=== PATIENT | male | born 1945 | race Caucasian/White ===

== ENCOUNTER → 2024-05-20 08:27 | Outpatient (REF) | payer BC, SELFPAY ==
[2024-05-20 10:01] LABS: % Basophils 0.9 % (0-2); % Eosinophils 3.6 % (0-6); % Immature Granulocytes 0.4 % (0-0.5); % Lymphocytes 25.7 % (20.5-51.1); % Monocytes 8.6 % (1.7-9.3); % Neutrophils 60.8 % (42.2-75.2); Absolute Basophils 0.1 10^3/uL (0-0.2); Absolute Eosinophils 0.4 10^3/uL (0-0.7); Absolute Lymphocytes 2.5 10^3/uL (1.2-3.4); Absolute Monocytes 0.8 10^3/uL (0.1-0.6); Absolute Neutrophils 5.9 10^3/uL (1.4-6.5); Hematocrit 44.2 % (39.0-52.0); Hemoglobin 14.2 g/dL (13.0-18.0); Mean Corp Hgb Conc. 32.1 g/dL (33.0-37.0); Mean Corpuscular Hgb 30.1 pg (27.0-31.0); Mean Corpuscular Volume 93.6 fL (80.0-94.0); Mean Platelet Volume 10.9 fL (7.4-10.4); Nucleated Red Blood Cells % 0 % (-); Platelet Count 258 10^3/uL (130-400); Red Blood Cell Count 4.72 10^6/uL (4.70-6.10); Red Cell Dist. Width 15.1 % (11.5-14.5); White Blood Cell Count 9.8 10^3/uL (4.8-10.8)
[2024-05-20 10:26] LABS: Urine Albumin Negative (Neg - Trace); Urine Bilirubin Negative (Negative); Urine Character Clear (Clear); Urine Color Yellow; Urine Glucose Negative (Negative); Urine Ketone Negative (Negative); Urine Leukocyte Negative (Negative); Urine Nitrite Negative (Negative); Urine Occult Blood Trace (Negative); Urine Specific Gravity 1.015 (<1.030); Urine Urobilinogen 1+ (Neg - 1+)
[2024-05-20 11:11] LABS: Urine Squamous Cell 0-2 /LPF (Few)
[2024-05-20 12:23] LABS: ALT (SGPT) 14 U/L (0-50); AST (SGOT) 28 U/L (17-59); Alkaline Phosphatase 96 U/L (38-126); Blood Urea Nitrogen 13 mg/dl (9-20); Calcium 9.4 mg/dl (8.4-10.2); Carbon Dioxide 31 mmol/L (22-30); Chloride 102 mmol/L (98-107); Glucose 96 mg/dl (70-99); HDL Cholesterol 57 mg/dl; LDL Cholesterol, Calculated 56 mg/dl; Potassium 5.1 mmol/L (3.5-5.1); Sodium 146 mmol/L (135-145); Total Bilirubin 0.9 mg/dl (0.2-1.3); Total Cholesterol 125 mg/dl (50-199); Total Protein 6.6 g/dl (6.3-8.2); Triglyceride 64 mg/dl (10-149); Very Low Density Lipoprotein 12 mg/dl (0-30); eGFR > 60.00
== END ==
LOC: REG 08:27
PROVIDERS: ATTENDING PHYSICIAN Family Medicine
DX: Z00.00 Encounter for general adult medical examination without abnormal findings (principal); E78.2 Mixed hyperlipidemia; I10 Essential (primary) hypertension; Z12.5 Encounter for screening for malignant neoplasm of prostate
CPT/HCPCS: 36415; 80053; 80061; 81003; 81015; 84443; 85025; G0103

== ENCOUNTER → 2024-07-23 09:21 | Outpatient (REF) | payer BC, SELFPAY ==
[2024-07-23 16:56] LABS: Urine Albumin Negative (Neg - Trace); Urine Bilirubin Negative (Negative); Urine Character Clear (Clear); Urine Color Yellow; Urine Glucose Negative (Negative); Urine Ketone Negative (Negative); Urine Leukocyte Negative (Negative); Urine Nitrite Negative (Negative); Urine Occult Blood Negative (Negative); Urine Urobilinogen 1+ (Neg - 1+)
== END ==
LOC: CLAB 09:21
PROVIDERS: ATTENDING PHYSICIAN Physician Assistant Medical
DX: N39.0 Urinary tract infection, site not specified (principal)
CPT/HCPCS: 81003

== ENCOUNTER → 2024-11-03 14:42 | Outpatient (REF) | payer BC, SELFPAY | LOC: RAD 14:42 | PROVIDERS: ATTENDING PHYSICIAN Family Medicine | DX: R05.1 Acute cough (principal) | CPT/HCPCS: 71046 ==

== ENCOUNTER → 2025-06-18 08:52 | Outpatient (REF) | payer MEDICARE, SELFPAY | LOC: REG 08:52 | PROVIDERS: ATTENDING PHYSICIAN Student in an Organized Health Care Education/Training Program; FAMILY PHYSICIAN Family Medicine | DX: M53.3 Sacrococcygeal disorders, not elsewhere classified (principal) | CPT/HCPCS: 72220 ==

== ENCOUNTER 2025-07-01 15:05 | Emergency (ER) | payer MEDICARE, SELFPAY ==
[2025-07-01 15:19] VITALS: BP 125/53
[2025-07-01 15:55] LABS: Hematocrit 42.5 % (39.0-52.0); Hemoglobin 13.3 g/dL (13.0-18.0); Mean Corp Hgb Conc. 31.3 g/dL (33.0-37.0); Mean Corpuscular Volume 96.2 fL (80.0-94.0); Nucleated Red Blood Cells % 0 % (-); Platelet Count 273 10^3/uL (130-400); Red Cell Dist. Width 15.7 % (11.5-14.5)
[2025-07-01 16:19] LABS: ALT (SGPT) 17 U/L (0-50); AST (SGOT) 27 U/L (17-59); Albumin 4.0 g/dl (3.5-5.0); Alkaline Phosphatase 73 U/L (38-126); Blood Urea Nitrogen 20 mg/dl (9-20); Calcium 9.7 mg/dl (8.4-10.2); Carbon Dioxide 31 mmol/L (22-30); Chloride 106 mmol/L (98-107); Glucose 94 mg/dl (70-99); Potassium 5.2 mmol/L (3.5-5.1); Sodium 142 mmol/L (135-145); Total Protein 6.8 g/dl (6.3-8.2); eGFR > 60.00
[2025-07-01 16:23] LABS: Troponin I < 0.012 ng/ml
[2025-07-01 17:03] VITALS: BP 125/53; BP 136/72; BP 141/58; PULSE 62; PULSE 68; PULSE 80; BMI 21.2
[2025-07-01 17:39] LABS: Magnesium 2.2 mg/dl (1.6-2.3)
[2025-07-01 17:51] VITALS: BP 131/78
--- NOTE | 2025-07-01 18:30 | ED.GENMED ---
History of Present Illness
General
Chief Complaint: Back Pain
Source: patient and spouse
Exam Limitations: none
Time Seen by Provider: 07/01/25 16:13
Nursing documentation reviewed up to this point in time: agreed with
History of Present Illness
History of Present Illness:
Patient presents to ED secondary to ongoing dizziness, which has caused patient to fall on multiple occasions over the past 10 days. In addition, patient has been experiencing worsening shortness of breath with exertion, especially going up the
steps recently. At rest, patient is without any complaints. Denies headache. Denies blurred vision. Denies loss of sensation or weakness. Denies difficulty with speech. Denies recent change in diet. Denies recent illness. Denies chest
palpitations.
Past History
Past History
ED Past Medical History: CAD, HTN and Hypercholesterolemia
ED Past Surgical History: Other (Hernia repair)
Social History
Tobacco: Smoker
Alcohol: Occasional
Drug: None
Personal: Other
Living: other
Employment: Retired
Family History
Family History: Other
Review of Systems
Review of Systems
Allergies reviewed?: Yes
All Other Systems: ROS reviewed and negative except as documented in HPI and ROS
Constitutional: Reports no symptoms
Respiratory: Reports trouble breathing; Denies cough
Cardiac: Reports no symptoms; Denies palpitations or syncope
ABD/GI: Reports no symptoms
Musculoskeletal: Reports other (buttock pain)
Skin: Reports no symptoms
Neurological: Reports dizzy; Denies headache or weakness
Phy Exam
Physical Exam
Physical Exam:
Physical Exam
General: no apparent distress, not acutely ill. afebrile
Head: nc/at. eomi
Neck: supple. no meningeal signs.
Heart: s1/s2 regular rate and rhythm
Lungs: no acute respiratory distress. clear bilaterally
Abdomen: normal bowel sounds. not tender.
Neuro: alert and oriented x 3. no focal sensory/motor deficit. normal speech. normal gait
Skin: no rash
Psychiatric: well kept. interactive and cooperative
Extremities: no edema. no calf tenderness.
Course
Orders/Labs/Results
Orders:
Orders
07/01/25 15:25
Electrocardiogram (*1) Urgent
Reason for Study: Chest Pain
EKG- Treatment ONCE
07/01/25 15:43
Complete Blood Count/With Diff Urgent
Comprehensive Metabolic Panel Urgent
Magnesium Urgent
Comment: ADD ON
NT-proBNP Urgent
Comment: ADD ON
Troponin I Urgent
07/01/25 16:49
CT Chest PE Study Urgent
Comment:
Reason For Exam: hypoxia/sob with elevated d-dimer
CT Head W/o Iv Contrast Urgent
Comment:
Reason For Exam: multiple falls with dizziness
07/01/25 16:50
Add On- LAB Urgent
Tests Added?: magnesium, ProBNP
Orthostatic VS- Treatment ONCE
Abnormal Lab Results
07/01/25
15:43
RBC 4.42 L 10^6/uL
(4.70-6.10)
MCV 96.2 H fL
(80.0-94.0)
MCHC 31.3 L g/dL
(33.0-37.0)
RDW 15.7 H %
(11.5-14.5)
Absolute Monos (auto) 1.0 H 10^3/uL
(0.1-0.6)
Monocytes % 10.9 H %
(1.7-9.3)
Potassium 5.2 H mmol/L
(3.5-5.1)
Carbon Dioxide 31 H mmol/L
(22-30)
07/01/25 15:43
07/01/25 15:43
Vital Signs
Initial and Last Documented VS:
Initial Vital Signs
Temp Pulse Resp BP Pulse Ox
97.5 F 71 16 125/53 95
07/01/25 15:19 07/01/25 15:19 07/01/25 15:19 07/01/25 15:19 07/01/25 15:19
Last Documented Vital Signs
Temp Pulse Resp BP Pulse Ox
97.5 F 73 18 150/80 95
07/01/25 15:19 07/01/25 19:01 07/01/25 19:01 07/01/25 19:01 07/01/25 19:01
MDM/Problems Addressed
MDM/Problems Addressed:
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 However, does recommend that patient
to be admitted to the hospital for further evaluation and treatment. However, when recommendations provided to patient, patient adamant about going home without further workup. As such, we recommend that patient initiate 81 mg aspirin daily, along
with urgent outpatient follow-up with PCP, including potential MRI brain as an outpatient, if symptoms persist. In addition, neurology information provided for outpatient consultation. Patient and spouse expressed understanding at time of
discharge.
*Pulse Oximetry
SaO2: 100
Oxygen Mode of Delivery: Room air
Patient hypoxic: no
*Critical Care Note
Total Time (30-74mins, 75-104mins- exclusive of procedures): Not Applicable
ED Attending Note
-
Portions of this chart may have been created with voice recognition software.� Occasional wrong word or��sound alike� substitutions may have occurred due to the inherent limitations of voice recognition software.
Discharge Plan
Departure
Patient Disposition: Home (Routine Discharge)
Date of Disposition: 07/01/25
Time of Disposition: 18:49
Patient with high blood pressure during this ER visit?: Yes
Condition: Fair
Discharge Problem:
Dizziness
Instructions: Dizziness in adults - ED (DC)
Prescriptions:
No Action
atorvastatin 80 MG tablet
80 mg PO DAILY
lisinopril 2.5 MG tablet
2.5 mg PO DAILY
methylprednisolone [Medrol (Floyd)] 4 mg tablets,dose pack
See Rx Instructions .ROUTE .COMPLEX Qty: 21 0RF
Rx Instructions:
orally per package directions
Referrals:
Mark Anthony Kimbrough MD [Active, Neurology]
Mg James MD [Family Provider, Radiology]
Activity Restrictions/Additional Instructions:
As discussed, please follow-up with your primary care physician for reevaluation, including potential outpatient MRI brain, if symptoms persist. In addition, recommend outpatient consultation with referred neurologist as well. In the meantime,
recommend starting 81 mg aspirin daily. Please consider return to ED with worsening symptoms.
Interventions
Interventions:
*Risk Screen - Suicide Last Done: 07/01/25 15:19
*General Assessment Last Done: 07/01/25 16:07
*Neglect/Abuse Screening Last Done: 07/01/25 15:19
*ED- Fall Risk Assessment Last Done: 07/01/25 16:07
*ED COVID-19 Vaccine History Last Done: 07/01/25 16:07
*ED Influenza Vaccine History Last Done: 07/01/25 16:07
*Nursing Disposition Last Done: 07/01/25 19:01
ED-Musculoskeletal Assessment Last Done: 07/01/25 16:07
Discharge Date and Time
Discharge Date/Time: 07/01/25 19:01
Print Language: MAORI
[2025-07-01 19:01] VITALS: BP 150/80
== END 2025-07-01 19:01 | disposition home or self-care (01) ==
LOC: EMR 15:05
PROVIDERS: Emergency Medicine; EMERGENCY PHYSICIAN Emergency Medicine; FAMILY PHYSICIAN Radiology Radiation Oncology
DX: R42 Dizziness and giddiness (principal); R09.02 Hypoxemia; R29.6 Repeated falls; I25.10 Atherosclerotic heart disease of native coronary artery without angina pectoris; I10 Essential (primary) hypertension; E78.00 Pure hypercholesterolemia, unspecified; F17.200 Nicotine dependence, unspecified, uncomplicated; Z79.82 Long term (current) use of aspirin; Z86.73 Personal history of transient ischemic attack (TIA), and cerebral infarction without residual deficits
CPT/HCPCS: 99284; 70450; 71275; 80053; 83735; 83880; 84484; 85025; 93005; Q9967

== ENCOUNTER 2025-07-04 14:00 | Inpatient (IN) | payer MEDICARE, SELFPAY ==
[2025-07-03] VITALS (13 sets, daily range): BP systolic 121–160; BP diastolic 53–97; PULSE 65–77; BMI 25.3; BMI 24.5
--- NOTE | 2025-07-03 11:01 | ED.GENMED ---
History of Present Illness
<Sabrina Caldwell PA-C - Last Filed: 07/04/25 19:52>
General
Chief Complaint: Fall
Source: patient and family
Exam Limitations: none
Time Seen by Provider: 07/03/25 10:35
Nursing documentation reviewed up to this point in time: agreed with
History of Present Illness
History of Present Illness:
see MDM
Past History
<Sabrina Caldwell PA-C - Last Filed: 07/04/25 19:52>
Past History
ED Past Medical History: CAD, HTN and Hypercholesterolemia
ED Past Surgical History: Other (Hernia repair)
Social History
Tobacco: Smoker
Alcohol: Occasional
Drug: None
Personal: Other
Living: other
Employment: Retired
Family History
Family History: Other
Review of Systems
<Sabrina Caldwell PA-C - Last Filed: 07/04/25 19:52>
Review of Systems
Allergies reviewed?: Yes
All Other Systems: Not applicable
Phy Exam
<YVONNE Lala Last Filed: 07/04/25 19:52>
Physical Exam
Physical Exam:
GENERAL: Alert , in no apparent distress
HEAD: NCAT
EYE: pupils equal and reactive, no nystagmus, no photophobia
NECK: Supple,full rom, nontender
ENT: o/p clr, mmm.
CARDIAC: Regular rate and rhythm . no edema
LUNGS: Clear breath sounds bilaterally, no acute respiratory distress, no wheezes/rales/rhonchi
ABDOMEN: Soft, without focal tenderness, no r/g, no cvat
Back: No significant trauma or tenderness
NEUROLOGICAL: Alert and orientedx 4, cn intact, no facial asymmetry, 5/5 strength in UE/LE, sensation intact, romberg neg, ambulates with a walker steadily, neg pronator drift
SKIN: Warm and dry, skin intact.
MUSCULOSKELETAL: No edema, well perfused.
PSYCH: Normal and appropriate interaction.
Course
<Sabrina Caldwell PA-C - Last Filed: 07/04/25 19:52>
Orders/Labs/Results
Orders:
Orders
07/03/25 10:56
Cardiac Monitoring- Treatment ONCE
Orthostatic VS- Treatment ONCE
07/03/25 10:57
Electrocardiogram (*1) Urgent
Reason for Study: Other
Other Reason for Exam: falls
EKG- Treatment ONCE
07/03/25 11:03
Complete Blood Count/With Diff Urgent
Comprehensive Metabolic Panel Urgent
07/03/25 13:29
Admit/Transfer Patient As Directed
Co-Sign Provider:
Level of Care: Observation services
Assign to:: Telemetry
Physician / Group: lenin
Diagnosis: falls,
Reason for Telemetry: Arrhythmia
Date to Stop Telemetry: 07/06/25
Time to Stop Telemetry: 11:00
PRN Pain Medication Management As Directed
May give lesser potent ordered pain med per pt: Yes
preference::
Protocol:: Medication orders for pain may be administered in a
manner that supports deferring to patient preference
when the pt is:
- Requesting an ordered lesser potent pain medication.
Least to most potent pain medications are defined
as: acetaminophen < NSAID < tramadol < opioids
(morphine, oxycodone, hydromorphone).
- Requesting a lesser dose of the same medication IF
ORDERED.
- Requesting a less intrusive route of administration
if both routes are prescribed by the provider (PO <
IV).
07/03/25 13:30
Code Status As Directed
Resuscitation Status: Full Code
07/03/25 13:54
Urinalysis Reflex To Culture Urgent
Date Specimen was Collected: 07/03/25
Time Specimen was Collected: 13:53
Comment: clean catch
07/03/25 Dinner
Regular
At Your Request: Limited Participation
07/03/25 17:02
Acetaminophen [Tylenol] 650 mg PO Q4HPRN PRN
07/03/25 17:02
Activity As Directed
Activity Level: As Tolerated
Pneumatic Compression Sleeves As Directed
Type: Knee high
Vital Signs As Directed
Frequency: Per unit guidelines
Ot Eval And Treat Routine
PT Consult [Pt Eval And Treat] Routine
Activity Level: As Tolerated
DX Deep Vein Thrombosis Video Routine
07/04/25 06:44
Complete Blood Count/With Diff IN AM
Comprehensive Metabolic Panel IN AM
07/04/25 08:00
Aspirin Low Dose EC [Aspir Low (Enteric Coated)] 81 mg PO DAILY
Atorvastatin [Lipitor] 80 mg PO DAILY
Lisinopril [Zestril] 2.5 mg PO DAILY
07/06/25 11:00
DC Protocol for Telemetry ONCE
Abnormal Lab Results
07/03/25
11:03
RBC 4.25 L 10^6/uL
(4.70-6.10)
Hgb 12.5 L g/dL
(13.0-18.0)
MCHC 31.7 L g/dL
(33.0-37.0)
RDW 15.9 H %
(11.5-14.5)
Absolute Monos (auto) 0.9 H 10^3/uL
(0.1-0.6)
Chloride 109 H mmol/L
(98-107)
Carbon Dioxide 31 H mmol/L
(22-30)
07/03/25 11:03
07/03/25 11:03
Vital Signs
Initial and Last Documented VS:
Initial Vital Signs
Temp Pulse Resp BP Pulse Ox
36.6 C 71 16 147/64 95
07/03/25 09:48 07/03/25 09:48 07/03/25 09:48 07/03/25 09:48 07/03/25 09:48
Last Documented Vital Signs
Temp Pulse Resp BP Pulse Ox
36.8 C 64 18 124/55 94
07/04/25 19:46 07/04/25 19:46 07/04/25 19:46 07/04/25 19:46 07/04/25 19:46
<Enrique Rodriguez, - Last Filed: 07/03/25 12:52>
Orders/Labs/Results
Orders:
Orders
07/03/25 10:56
Cardiac Monitoring- Treatment ONCE
Orthostatic VS- Treatment ONCE
07/03/25 10:57
Electrocardiogram (*1) Urgent
Reason for Study: Other
Other Reason for Exam: falls
EKG- Treatment ONCE
07/03/25 11:03
Complete Blood Count/With Diff Urgent
Comprehensive Metabolic Panel Urgent
07/03/25 13:29
Admit/Transfer Patient As Directed
Co-Sign Provider:
Level of Care: Observation services
Assign to:: Telemetry
Physician / Group: lenin
Diagnosis: falls,
Reason for Telemetry: Arrhythmia
Date to Stop Telemetry: 07/06/25
Time to Stop Telemetry: 11:00
PRN Pain Medication Management As Directed
May give lesser potent ordered pain med per pt: Yes
preference::
Protocol:: Medication orders for pain may be administered in a
manner that supports deferring to patient preference
when the pt is:
- Requesting an ordered lesser potent pain medication.
Least to most potent pain medications are defined
as: acetaminophen < NSAID < tramadol < opioids
(morphine, oxycodone, hydromorphone).
- Requesting a lesser dose of the same medication IF
ORDERED.
- Requesting a less intrusive route of administration
if both routes are prescribed by the provider (PO <
IV).
07/03/25 13:30
Code Status As Directed
Resuscitation Status: Full Code
07/03/25 13:54
Urinalysis Reflex To Culture Urgent
Date Specimen was Collected: 07/03/25
Time Specimen was Collected: 13:53
Comment: clean catch
07/03/25 Dinner
Regular
At Your Request: Limited Participation
07/03/25 17:02
Acetaminophen [Tylenol] 650 mg PO Q4HPRN PRN
07/03/25 17:02
Activity As Directed
Activity Level: As Tolerated
Pneumatic Compression Sleeves As Directed
Type: Knee high
Vital Signs As Directed
Frequency: Per unit guidelines
Ot Eval And Treat Routine
PT Consult [Pt Eval And Treat] Routine
Activity Level: As Tolerated
DX Deep Vein Thrombosis Video Routine
07/04/25 06:44
Complete Blood Count/With Diff IN AM
Comprehensive Metabolic Panel IN AM
07/04/25 08:00
Aspirin Low Dose EC [Aspir Low (Enteric Coated)] 81 mg PO DAILY
Atorvastatin [Lipitor] 80 mg PO DAILY
Lisinopril [Zestril] 2.5 mg PO DAILY
07/06/25 11:00
DC Protocol for Telemetry ONCE
Abnormal Lab Results
07/03/25
11:03
RBC 4.25 L 10^6/uL
(4.70-6.10)
Hgb 12.5 L g/dL
(13.0-18.0)
MCHC 31.7 L g/dL
(33.0-37.0)
RDW 15.9 H %
(11.5-14.5)
Absolute Monos (auto) 0.9 H 10^3/uL
(0.1-0.6)
Chloride 109 H mmol/L
(98-107)
Carbon Dioxide 31 H mmol/L
(22-30)
07/03/25 11:03
07/03/25 11:03
Vital Signs
Initial and Last Documented VS:
Initial Vital Signs
Temp Pulse Resp BP Pulse Ox
36.6 C 71 16 147/64 95
07/03/25 09:48 07/03/25 09:48 07/03/25 09:48 07/03/25 09:48 07/03/25 09:48
Last Documented Vital Signs
Temp Pulse Resp BP Pulse Ox
36.8 C 64 18 124/55 94
07/04/25 19:46 07/04/25 19:46 07/04/25 19:46 07/04/25 19:46 07/04/25 19:46
<Sabrina Caldwell PA-C - Last Filed: 07/04/25 19:52>
MDM/Problems Addressed
Differential Diagnosis Includes:
see MDM
MDM/Problems Addressed:
Note:
CHIEF COMPLAINT(S)
Falls with associated dizziness and right leg giving out.
HISTORY OF PRESENT ILLNESS
The patient is an adult male who presents with a history of frequent falls, most recently last night. The patient reports that he experienced severe pain in his calf while in the shower, and upon stepping out with his right leg, it 'gave out,'
resulting in a fall. His attempted to assist him for 30 to 45 minutes before he was able to get up on his own. The patient notes this is the fourth fall within the past week. He describes episodes of lightheadedness associated with these falls.
Two days prior, the patient was evaluated at [facility], where blood work, ultrasound, and chest X-ray were performed. The ultrasound reportedly included the leg, though the specific findings were unclear. A fall a few days ago resulted in tailbone
pain, but X-rays at another facility showed no fracture.
The patient reports no chronic neurological issues such as Parkinsons disease but has experienced essential tremors when sitting for an extended period. There is no significant history of traumatic injuries apart from tailbone discomfort, ongoing
since a fall on June 11 while cleaning. The falls have not been associated with alcohol use, and he denies current alcohol consumption.
PAST MEDICAL AND SURIGICAL HISTORY
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
CHRONIC MEDICAL CONDITIONS SIGNIFICANTLY AFFECTING CARE
The patient has a history of chronic obstructive pulmonary disease (COPD).
SOCIAL DETERMINANTS AFFECTING HEALTH
The patients condition of chronic obstructive pulmonary disease (COPD) was highlighted during the examination. He has never been informed previously of this diagnosis, indicating potential communication barriers in his healthcare journey. There were
also discussions concerning shortness of breath associated with the use of albuterol, suggesting a possible issue with medication access or understanding.
MEDICATIONS
The patient is on an albuterol nebulator, initiated recently though specific ongoing medications were not detailed during this visit.
PHYSICAL EXAM
- Nursing notes reviewed and vital signs reviewed.
- Musculoskeletal: The patient experienced a fall due to the right leg giving out. No acute injuries reported from the latest fall.
- Neurological: Reports of tremors in the hands, specifically when sitting, but disappear upon standing.
PROBLEM LIST
Acute:
- Frequent falls with associated lightheadedness
- Essential tremor
Chronic:
- Chronic obstructive pulmonary disease (COPD)
- History of cerebrovascular accident in 2019
PLAN
Further diagnostic testing, specifically an MRI, has been advised to evaluate potential intracranial causes of dizziness and recurrent falls. Consideration for physical therapy assessment to provide assistance with ambulation and balance training.
Potential outpatient follow-up for essential tremors and coordination of care concerning COPD and its management.
DIFFERENTIAL DIAGNOSIS
The Differential Diagnosis includes, in no particular order and is not limited to:
- Cerebrovascular accident (stroke)
- Orthostatic hypotension
- Benign paroxysmal positional vertigo (BPPV)
- Parkinson�s disease
- Peripheral neuropathy
- Cardiovascular syncope
- Medication side effects
- Essential tremor
- Musculoskeletal imbalance
- Inner ear dysfunction
79-year-old male with frequent falls, sent in by his family doctor for admission for MRI and PT consult. Patient seems to have quite stable gait with a walker and negative orthostatics. However at this primary was very strongly adamant that the
patient has fallen many times which is a new problem for him over the last couple of weeks and this was concerning that he needed a workup for. Seen by ED attending, luis ops
<Sabrina Caldwell PA-C - Last Filed: 07/04/25 19:52>
*Pulse Oximetry
SaO2: 95
Oxygen Mode of Delivery: Room air
Patient hypoxic: no
*Critical Care Note
Total Time (30-74mins, 75-104mins- exclusive of procedures): Not Applicable
ED Attending Note
<Sabrina Caldwell PA-C - Last Filed: 07/04/25 19:52>
-
Portions of this chart may have been created with voice recognition software.� Occasional wrong word or��sound alike� substitutions may have occurred due to the inherent limitations of voice recognition software.
<Enrique Rodriguez DO - Last Filed: 07/03/25 12:52>
ED Attending Note
Patient seen and examined by attending physician: Yes
I performed the substantive portion of visit, reviewed & personally made and approve the management plan that is documented in note by myself or IGGY.: Yes
ED Attending Note:
79-year-old male with frequent falls. Sent by PCP for consideration of observation and physical therapy evaluation. Patient is able to ambulate with a walker here in the emergency department.
Discharge Plan
Departure
Patient Disposition: Admit
Date of Disposition: 07/03/25
Time of Disposition: 12:51
Admit to: Telemetry
Presentation/result/management discussed w/ accepting MD/DO: Hospitalist
Condition: Fair
Covid-19: Not Applicable
Discharge Problem:
Falls frequently, Infarction of left basal ganglia
Interventions
Interventions:
*Risk Screen - Suicide Last Done: 07/03/25 09:48
*General Assessment Last Done: 07/03/25 11:08
*Neglect/Abuse Screening Last Done: 07/03/25 09:48
*ED- Fall Risk Assessment Last Done: 07/03/25 11:08
*ED COVID-19 Vaccine History Last Done: 07/03/25 11:08
*ED Influenza Vaccine History Last Done: 07/03/25 11:08
*Nursing Disposition Last Done: 07/03/25 17:06
ED-Musculoskeletal Assessment Last Done: 07/03/25 11:10
ED- Neurological Assessment Last Done: 07/03/25 11:10
ED-Skin Assessment Last Done: 07/03/25 11:10
Discharge Date and Time
Discharge Date/Time: 07/03/25 17:06
[2025-07-03 11:14] LABS: Hematocrit 39.4 % (39.0-52.0); Hemoglobin 12.5 g/dL (13.0-18.0); Mean Corp Hgb Conc. 31.7 g/dL (33.0-37.0); Mean Corpuscular Volume 92.7 fL (80.0-94.0); Nucleated Red Blood Cells % 0 % (-); Platelet Count 249 10^3/uL (130-400); Red Cell Dist. Width 15.9 % (11.5-14.5)
[2025-07-03 11:29] LABS: ALT (SGPT) 16 U/L (0-50); AST (SGOT) 22 U/L (17-59); Albumin 3.6 g/dl (3.5-5.0); Alkaline Phosphatase 86 U/L (38-126); Blood Urea Nitrogen 16 mg/dl (9-20); Calcium 8.8 mg/dl (8.4-10.2); Carbon Dioxide 31 mmol/L (22-30); Chloride 109 mmol/L (98-107); Estimated Creatinine Clearance 69 ml/min; Glucose 99 mg/dl (70-99); Potassium 4.4 mmol/L (3.5-5.1); Sodium 142 mmol/L (135-145); Total Protein 6.3 g/dl (6.3-8.2); eGFR > 60.00
--- NOTE | 2025-07-03 13:32 | HPS.HSE ---
Family Physician
-
Family Physician: Mg James
Chief Complaint
-
Allergies
Allergy/AdvReac Type Severity Reaction Status Date / Time
No Known Allergies Allergy Verified 07/01/25 15:23
Home Medications
atorvastatin 80 mg tablet 80 mg PO DAILY 03/06/21
lisinopril 2.5 mg tablet 2.5 mg PO DAILY 03/06/21
aspirin 81 mg tablet 81 mg PO DAILY 07/03/25
History of Present Illness
79-year-old male past medical history ofhypertension, hyperlipidemia, CAD status post stents, sent in by primary care physician for consideration of physical therapy.
Patient had an injury when he was lifting a covered on June 11 and it fell. It did not fall onto him and patient did not hit his head but he developed pain in his coccyx since then. He saw his primary care physician who ordered x-rays which
were unremarkable. He has been taking meloxicam for pain. Continues to have pain. Denies any numbness or tingling in the legs, numbness in the anal or genital region, incontinence.
Patient was in the emergency room 2 days ago for ongoing dizziness resulting in multiple falls over the past 10 days. He feels like his legs give out. He denies passing out. Denies vertigo. Patient was also having worsening shortness of breath
with exertion and up the steps recently. During the emergency room visit patient had CT head which showed left basal ganglia/periventricular region infarct. CT PE which were unremarkable. Case was discussed with on-call neurologist and potential
MRI brain was offered but patient declined and wanted to go home. Aspirin was started.
He smokes 1 pack of cigarettes per day. Denies alcohol use.
Medical History
Past Medical History
Past Medical History: Reports Other (hypertension, hyperlipidemia, CAD status post stents)
Past Surgical History: Reports Other (Hernia repair)
Social History
Tobacco: Smoker
Alcohol: None
Drug: None
Family History
Family History: Not pertinent
Allergies / Home Medications
Allergies reflects when Allergies were last updated in [employer].
Home Medications with original date entered in [employer]
Allergy/Medication List:
Allergies
Allergy/AdvReac Type Severity Reaction Status Date / Time
No Known Allergies Allergy Verified 07/01/25 15:23
Home Medications
atorvastatin 80 mg tablet 80 mg PO DAILY 03/06/21
lisinopril 2.5 mg tablet 2.5 mg PO DAILY 03/06/21
aspirin 81 mg tablet 81 mg PO DAILY 07/03/25
Review of Systems
-
History Source: Patient
A 12 point ROS was completed and negative except as noted: Yes
Constitutional: Reports No Symptoms
EENT: Reports No Symptoms
Respiratory: Reports No Symptoms
Cardiac: Reports No Symptoms
Abdomen/GI: Reports No Symptoms
: Reports No Symptoms
Musculoskeletal: Reports No Symptoms
Skin: Reports No Symptoms
Neurological: Reports No Symptoms
Endocrine: Reports No Symptoms
Hematologic/Lymphatic: Reports No Symptoms
Psych: Reports No Symptoms
Physical Exam
Vital Signs
Vital Signs
Temp Pulse Resp BP Pulse Ox
98 F 60 22 147/63 96
07/03/25 09:48 07/03/25 13:00 07/03/25 13:00 07/03/25 13:00 07/03/25 12:15
Physical Exam
General: Well Developed, Well Nourished and No Apparent Distress
HEENT: NormoCephalic, Moist mucous membranes and Atraumatic
Respiratory: Clear
Cardiac: S1/S2 and Regular Rhythm; No Murmur or Rub
GI: Soft, Non Tender, Non Distended and Normal Bowel Sounds; No Organomegaly
Rectal: Deferred by Provider
Musculoskeletal: No Clubbing, No Cyanosis and No Edema
Skin: No Rash
Neuro: Nonfocal/grossly intact
Laboratory Results
-
07/03/25 11:03
07/03/25 11:03
Laboratory Results
Total Bilirubin 0.5 mg/dl (0.2-1.3) 07/03/25 11:03
AST 22 U/L (17-59) 07/03/25 11:03
ALT 16 U/L (0-50) 07/03/25 11:03
Alkaline Phosphatase 86 U/L (38-126) 07/03/25 11:03
Data Reviewed
-
Lab Data: Labs Reviewed by me
Old Records: Reviewed
Impression/Plan
-
IMPRESSION:
PLAN:
# Frequent falls secondary to possible left basal ganglia/periventricular infarct versus less likely concussion as no head injury versus deconditioning from coccyx pain
-Orthostatics negative
-EKG shows normal sinus rhythm
- CT head and CT PE from 2 days ago unremarkable
- Check MRI brain
-Continue aspirin recently started 2 days ago
- PT OT
# Coccyx pain secondary to recent fall
- No concerning neurological symptoms
- PT OT and pain control with Tylenol,
- Hold meloxicam as concern for potential CVA
# Dyspnea on exertion
-Unclear etiology
- CT PE negative
Essential hypertension
- Continue lisinopril
Hyperlipidemia
- Continue statin
CAD status post stents
- Now on aspirin
Active smoker
- Smokes 1 pack/day
Full code
DVT prophylaxis�heparin
Regular diet
[2025-07-03 14:12] LABS: Urine Character Clear (Clear)
--- NOTE | 2025-07-03 14:19 | EDCM ---
CM reviewed chart and met with pt and perlita in ED. Lives with in [facility], [address] [facility].
Independent in ADLs, personal care and ambulation at baseline, has been using RW over past few days. Also has shower chair.
Confirms prescription coverage.
Herrmann reviewed and signed. Copy left with pt.
No hx VN or SNF
PCP: Mg James
Pharmacy: [facility]
Anticipate discharge home, CM will continue to follow for any discharge planning needs
--- NOTE | 2025-07-03 17:15 | PTCARENOTE ---
Received pt from ED via stretcher. Ambulated to bed x1 with RW. HAROLDOOx3, [facility]. Telemetry #19 reading NSR. Oriented to room. Pt verbalized understanding of call soriano. Call soriano within close reach. Will continue to monitor.
--- NOTE | 2025-07-03 19:02 | PTCARENOTE ---
Scab observed on right upper arm.
[2025-07-04] VITALS (8 sets, daily range): BP systolic 89–165; BP diastolic 51–78; PULSE 76; O2SAT 94
[2025-07-04 07:26] LABS: Hematocrit 42.9 % (39.0-52.0); Hemoglobin 13.1 g/dL (13.0-18.0); Mean Corp Hgb Conc. 30.5 g/dL (33.0-37.0); Mean Corpuscular Volume 95.1 fL (80.0-94.0); Nucleated Red Blood Cells % 0 % (-); Platelet Count 254 10^3/uL (130-400); Red Cell Dist. Width 15.8 % (11.5-14.5)
[2025-07-04 07:58] LABS: ALT (SGPT) 15 U/L (0-50); AST (SGOT) 24 U/L (17-59); Albumin 3.6 g/dl (3.5-5.0); Alkaline Phosphatase 76 U/L (38-126); Blood Urea Nitrogen 13 mg/dl (9-20); Calcium 8.8 mg/dl (8.4-10.2); Carbon Dioxide 25 mmol/L (22-30); Chloride 108 mmol/L (98-107); Estimated Creatinine Clearance 80 ml/min; Glucose 86 mg/dl (70-99); Potassium 4.5 mmol/L (3.5-5.1); Sodium 140 mmol/L (135-145); Total Protein 6.4 g/dl (6.3-8.2); eGFR > 60.00
[2025-07-04] MEDS: LIPITOR 80 MG PO (09:53)
[2025-07-04] MEDS: ZESTRIL 2.5 MG PO (09:53)
[2025-07-04] MEDS: ASPIR LOW (ENTERIC COATED) 81 MG PO (09:53)
--- NOTE | 2025-07-04 09:53 | W.PN.HOSP.TC ---
Addendum entered and electronically signed by Elton Dugan MD 07/04/25 14:13:
Seen and examined the patient. Agree with plan set forth by the resident. See changes in my documentation
79-year-old male with falls. He had an injury while lifting something heavy on June 11 and fell backwards on his bottom. He developed pain in the coccyx since then. He was seen in the ER 2 days ago with dizziness and falls states that his
legs give out. Also had some worsening shortness of breath during the ER visit head CT showed a left basal ganglia/periventricular infarct. Patient was advised to get admitted for an MRI but he wanted to go home. Aspirin was started.
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
CT PE Study-No evidence of pulmonary embolism.No significant acute abnormality identified in the chest, as described above.
MRI of the brain -1.8 cm subacute infarct of the left pisano radiata and superior left basal ganglia.Other small chronic infarcts of the left pisano radiata and left basal ganglia. Chronic lacunar infarcts of the right caudate head and right
thalamus.
No visual field defects
No facial droop
Cardiovascular system S1-S2 appreciated
Chest clear to auscultation
Abdomen soft and nontender
Neuro exam-no facial droop sensorimotor exam mostly intact
Tenderness sacral area
# Frequent falls
Orthostatic vital signs negative
CT PE study unremarkable
MRI of the brain with CVA likely reason-subacute infarct of the left pisano radiata and superior left basal ganglia
He also has tight IT bands
Continue aspirin
PT OT
Neuro eval
# Coccygeal pain with recent fall- Check MRI
# Dyspnea on exertion-CT PE study negative. Check echo
# Hypertension- Lisinopril
# Hyperlipidemia- Continue Statin
# CAD status post stents- Now on aspirin, Statin
# Low normal B 12- replace
# Active smoker- Smokes 1 pack/day-smoking cessation counseling
# DVT prophylaxis�Lovenox
# Full CODE
Part of this note was created using voice recognition system. Occasional wrong word or��sound alike� substitutions may have inadvertently occurred due to the inherent limitations of voice recognition software. If noted kindly bring it to my
attention for correction.
Original Note:
Today's Communication/Plan
-
Follow-up brain and lumbar MRI, consider neuro consult after if indicated
Lidocaine patch for back pain
Follow-up echo and troponin
Assessment / Plan
Assessment / Plan
Mr. Trevino is a 79-year-old male current smoker with history of hypertension, hyperlipidemia, CAD status post stents, sent in by primary care physician for consideration of physical therapy after multiple falls and coccyx pain since 06/11/2025. CT
head in ED showed left basal ganglia/periventricular region infarct.
#Frequent falls secondary to possible left basal ganglia/periventricular infarct versus less likely concussion as no head injury versus deconditioning from coccyx pain
- Orthostatics negative
- EKG shows normal sinus rhythm
- CT head and CT PE from 2 days ago unremarkable
- Follow-up MRI lumbar and brain, consider formal neurology consult (curb sided in ED)
- Follow-up echo and troponin
- Continue aspirin recently started 2 days ago
- PT AND OT
#Coccyx pain secondary to recent fall
- No concerning neurological symptoms
- PT and OT
- Lidocaine patch and pain control with Tylenol
- Hold meloxicam as concern for potential CVA
#Dyspnea on exertion
- Unclear etiology
- CT PE negative
#Essential hypertension
- Continue lisinopril
#Hyperlipidemia
- Continue statin
#CAD status post stents
- Now on aspirin
#Active smoker
Smokes 1 pack/day.
- Discussed with patient consideration for quitting nicotine and interested in nicotine patch
Full code
DVT prophylaxis�heparin
Regular diet
Dispo pending clinical improvement and PT
Anticipated Discharge: 24 - 48 hours
Subjective/Interval History
-
Date of Service: July 04, 2025
-This morning, he states that after his first follow-up on 06/11 where he landed on his back, he has felt much weaker and has had about 3-4 more falls since that. He endorses pain in his coccyx currently, which is better with shifting weight to
either side. He states that he generally feels very weak and like his legs give out every time he tries to stand as a result of his back pain. He has only had x-rays of his back at [facility].
Objective Data
-
Labs:
Laboratory Results
07/04/25
06:44
WBC 9.9
Hgb 13.1
Hct 42.9
Plt Count 254
Sodium 140
Potassium 4.5
Chloride 108 H
Carbon Dioxide 25
BUN 13
Creatinine 0.6 L
Glucose 86
Calcium 8.8
Total Bilirubin 0.8
AST 24
ALT 15
Alkaline Phosphatase 76
Vital Signs:
Vital Signs
Temp Pulse Resp BP Pulse Ox
97.6 F 70 22 150/69 93
07/04/25 07:00 07/04/25 07:00 07/04/25 07:00 07/04/25 07:00 07/04/25 07:00
Physical Exam
-
General: Well Developed, Well Nourished, No Apparent Distress, Comfortable and Other
HEENT: Normocephalic, Atraumatic and Hearing Impaired (Have to speak up as patient is hard of hearing)
Respiratory: Clear to Auscultation
Cardiac: Regular Rhythm
GI: Soft, Nontender and Nondistended
Musculoskeletal: No Clubbing, No Cyanosis, No Edema and Other (TTP at coccyx and lumbar spine)
Skin: Warm and Dry
Neuro: AO x 3
Psych: Calm and Intact Judgement/Insight
[2025-07-04] MEDS: LIDOCAINE 4% PATCH 1 PATCH TOPICAL (09:56)
[2025-07-04 11:17] LABS: Troponin I < 0.012 ng/ml
[2025-07-04 13:45] LABS: Vitamin B12 269 pg/ml (239-931)
--- NOTE | 2025-07-04 14:17 | W.PN.UPDATE ---
Update Note
Progress Note Update
2:17pm, Brain MRI showing 1.8 cm subacute infarct of the left pisano radiata and superior left basal ganglia. Other small chronic infarcts of the left pisano radiata and left basal ganglia. Chronic lacunar infarcts of the right caudate head and
right thalamus. Neurology updated and consulted. updated. PT recommending inpatient rehab at [facility] (formal note pending).
--- NOTE | 2025-07-04 14:26 | CON.NEURO4 ---
Addendum entered and electronically signed by Stanislav Pfeiffer MD 07/04/25 16:23:
The the patient is going to be on aspirin 81 mg daily, Plavix 75 mg daily and atorvastatin 80 mg daily.
The patient will also need CTA of the head and neck and an echocardiogram.
Original Note:
Consultation - Neurology 4
-
CONSULTING PHYSICIAN: Stanislav Pfeiffer MD
REFERRING PHYSICIAN: Marco West
DICTATED BY: Stanislav Pfeiffer MD
DATE/TIME OF REQUEST: 07/04/2025
DATE/TIME OF CONSULTATION: 07/04/2025
Reason for Consultation: CVA
Assessment and Plan:
The patient is a 79 years old male who presented to the ER secondary to dizziness which has led to multiple falls over the last 10 days. The patient denies speech difficulty or any focal weakness and numbness. The patient presented to the ER 2
days prior to the current admission for dizziness and multiple falls over the past 10 days. During the ER visit the patient had a CT of the head done which showed a left basal ganglia/periventricular region infarct. The patient was offered MRI of
the brain but he declined and wanted to go home. The plan is to continue the aspirin which was recently started 2 days ago and to get MRI of the brain.
According to the patient's the patient fell about 10 days ago due to weakness, and it is likely that the patient had a stroke at that time but he did not come to the hospital at that time.
. The CT of the head done on 07/01/2025 during the patient's visit to the ER 2 days ago, did not show any acute intracranial abnormality, however there is a left basal ganglia/periventricular region infarct which appears to be subacute.
. MRI of the brain done today shows 1.8 cm subacute infarct of the left pisano radiator and superior left basal ganglia.
The plan is to continue the aspirin which was recently started 2 days ago and to get MRI of the brain.
History of Present Illness:
The patient is a 79 years old male who presented to the ER secondary to dizziness which has led to multiple falls over the last 10 days. The patient denies speech difficulty or any focal weakness and numbness. The patient presented to the ER 2
days prior to the current admission for dizziness and multiple falls over the past 10 days. During the ER visit the patient had a CT of the head done which showed a left basal ganglia/periventricular region infarct. The patient was offered MRI of
the brain but he declined and wanted to go home. The plan is to continue the aspirin which was recently started 2 days ago and to get MRI of the brain.
Past Medical History: HTN
Review of Systems:
The patient denies headache, dizziness, chest pain shortness of breath, fever, chills, nausea and vomiting.
Neurologic Examination:
The patient is alert and oriented x 3,
Speech is clear,
The cranial nerves II to XII grossly intact,
The motor strength is about 4/5 in the right upper and lower extremities and is about 5/5 in the left upper and lower extremities.
The sensations are intact bilaterally,
The cerebellar examination did not show limb ataxia.
Vital Signs and Labs
-
Vital Signs and Labs:
Vital Signs
Temp Pulse Resp BP Pulse Ox
36.6 C 66 22 165/65 95
07/04/25 11:00 07/04/25 11:00 07/04/25 11:00 07/04/25 11:00 07/04/25 11:00
Lab Results
07/04/25 06:44
07/04/25 06:44
Sodium 140 mmol/L (135-145) 07/04/25 06:44
Potassium 4.5 mmol/L (3.5-5.1) 07/04/25 06:44
BUN 13 mg/dl (9-20) 07/04/25 06:44
Glucose 86 mg/dl (70-99) 07/04/25 06:44
Calcium 8.8 mg/dl (8.4-10.2) 07/04/25 06:44
Vitamin B12 Cancelled 07/04/25 11:19
Medications
-
Active Medications
Generic Name Dose Route Start Last Admin
Trade Name Freq PRN Reason Stop Dose Admin
Acetaminophen 650 mg 07/03/25 17:02
Acetaminophen 325 Mg Tablet PO 07/31/25 17:01
Q4HPRN PRN
mild pain/GARSIA/temp> 100.4F
Aspirin 81 mg 07/04/25 08:00 07/04/25 09:53
Aspirin 81 Mg (Enteric Coated) Tablet PO 08/01/25 07:59 81 mg
DAILY CINDY Administration
Atorvastatin Calcium 80 mg 07/04/25 08:00 07/04/25 09:53
Atorvastatin (Lipitor) 80 Mg Tablet PO 08/01/25 07:59 80 mg
DAILY CINDY Administration
Cyanocobalamin 1,000 mcg 07/05/25 08:00
Cyanocobalamin (1000 Mcg/Ml) 1 Ml Vial IM 08/02/25 07:59
DAILY CINDY
Lidocaine 1 patch 07/04/25 08:45 07/04/25 09:56
Lidocaine 4% Topical Patch TOPICAL 08/01/25 08:44 1 patch
DAILY CINDY Administration
Protocol
Lisinopril 2.5 mg 07/04/25 08:00 07/04/25 09:53
Lisinopril 2.5 Mg Tablet PO 08/01/25 07:59 2.5 mg
DAILY CINDY Administration
Patch Removal 0 patch 07/04/25 20:00
Remove Lidocaine Patch REMOVE 08/01/25 19:59
DAILY@2000 CINDY
Sodium Chloride 0 flush 07/03/25 18:00
Sodium Chloride 0.9% (Flush) Syringe IV 07/31/25 17:59
PER PROTOCOL CINDY
Home Medications
�Medication �Instructions �Recorded
atorvastatin 80 mg tablet 80 mg PO DAILY 03/06/21
lisinopril 2.5 mg tablet 2.5 mg PO DAILY 03/06/21
aspirin 81 mg tablet 81 mg PO DAILY 07/03/25
[2025-07-04] MEDS: CYANOCOBALAMIN 1000 MCG IM (14:59)
[2025-07-04 16:27] LABS: Hepatitis C Antibody Negative (Negative)
[2025-07-04] MEDS: REMOVE LIDOCAINE PATCH 1 PATCH REMOVE (22:27)
[2025-07-05 03:15] VITALS: BP 127/55
[2025-07-05 07:19] LABS: HDL Cholesterol 62 mg/dl; LDL Cholesterol, Calculated 74 mg/dl; Very Low Density Lipoprotein 15 mg/dl (0-30)
[2025-07-05 08:02] VITALS: BP 156/76
[2025-07-05] MEDS: LIDOCAINE 4% PATCH TOPICAL (08:15)
[2025-07-05] MEDS: LIPITOR 80 MG PO (08:15)
[2025-07-05] MEDS: ZESTRIL 2.5 MG PO (08:15)
[2025-07-05] MEDS: ASPIR LOW (ENTERIC COATED) 81 MG PO (08:15)
[2025-07-05] MEDS: CYANOCOBALAMIN 1000 MCG IM (08:16)
[2025-07-05 09:16] LABS: Hematocrit 43.7 % (39.0-52.0); Hemoglobin 13.5 g/dL (13.0-18.0); Mean Corp Hgb Conc. 30.9 g/dL (33.0-37.0); Mean Corpuscular Volume 95.0 fL (80.0-94.0); Nucleated Red Blood Cells % 0 % (-); Platelet Count 281 10^3/uL (130-400); Red Cell Dist. Width 15.7 % (11.5-14.5)
[2025-07-05 09:35] LABS: ALT (SGPT) 16 U/L (0-50); AST (SGOT) 24 U/L (17-59); Albumin 3.7 g/dl (3.5-5.0); Alkaline Phosphatase 75 U/L (38-126); Blood Urea Nitrogen 14 mg/dl (9-20); Calcium 8.9 mg/dl (8.4-10.2); Carbon Dioxide 28 mmol/L (22-30); Chloride 105 mmol/L (98-107); Estimated Creatinine Clearance 69 ml/min; Glucose 91 mg/dl (70-99); Magnesium 2.0 mg/dl (1.6-2.3); Potassium 4.1 mmol/L (3.5-5.1); Sodium 140 mmol/L (135-145); Total Protein 6.5 g/dl (6.3-8.2); eGFR > 60.00
--- NOTE | 2025-07-05 09:50 | W.PN.HOSP.TC ---
Addendum entered and electronically signed by Elton Dugan MD 07/05/25 14:24:
Seen and examined the patient. Agree with plan set forth by the resident. See changes in my documentation.
79-year-old male with falls. He had an injury while lifting something heavy on June 11 and fell backwards on his bottom. He developed pain in the coccyx since then. He was seen in the ER 2 days ago with dizziness and falls states that his
legs give out. Also had some worsening shortness of breath during the ER visit head CT showed a left basal ganglia/periventricular infarct. Patient was advised to get admitted for an MRI but he wanted to go home. Aspirin was started.
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
CT PE Study-No evidence of pulmonary embolism.No significant acute abnormality identified in the chest, as described above.
MRI of the brain -1.8 cm subacute infarct of the left pisano radiata and superior left basal ganglia.Other small chronic infarcts of the left pisano radiata and left basal ganglia. Chronic lacunar infarcts of the right caudate head and right
thalamus.
CTA head and neck-subacute on chronic infarct in the left pisano radiata and left basal ganglia. No high-grade stenosis or occlusion of the [place]. 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 Bilateral carotid
bifurcation atherosclerosis causing 80% stenosis of the left carotid bulb and 50% stenosis of the right carotid bulb. Moderate stenosis at the origin of the right vertebral artery.
Vascular ultrasound-calcific plaque in the left carotid bulb suggestive of less than 50% stenosis. Calcific right carotid bulb plaque less than 50% stenosis
Echo-EF 62%. No changes since 2014. Thickened aortic valve with adequate leaflet excursion. Mild concentric LVH. Mild MR
Lumbar spine MRI-no acute fracture. 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
Cardiovascular system S1-S2 appreciated, short systolic murmur at apex
Chest clear to auscultation
Abdomen soft and nontender
Neuro exam-no facial droop sensorimotor exam mostly intact
# Frequent falls
Orthostatic vital signs negative
CT PE study unremarkable
MRI of the brain with CVA likely reason-subacute infarct of the left pisano radiata and superior left basal ganglia
He also has tight IT bands
Continue aspirin, statin
PT OT
Neuro eval noted
# Coccygeal pain with recent fall- MRI noted
# Dyspnea on exertion-CT PE study negative. Echo without any acute changes. Possible deconditioning. No real reasons. Patient is not hypoxic
# Hypertension- Lisinopril
# Hyperlipidemia- Continue Statin
# CAD status post stents- Now on aspirin, Statin
# Active smoker- Smokes 1 pack/day-smoking cessation counseling
# DVT prophylaxis�Lovenox
# Full CODE
Discussed with and grandson at bedside
Part of this note was created using voice recognition system. Occasional wrong word or��sound alike� substitutions may have inadvertently occurred due to the inherent limitations of voice recognition software. If noted kindly bring it to my
attention for correction.
Original Note:
Today's Communication/Plan
-
Awaiting Echo results
Physiatry consult
Vascular surgery consult
Continue pain control
Assessment / Plan
Assessment / Plan
ASSESSMENT:
A 79-year-old male current smoker with history of hypertension, hyperlipidemia, CAD status post stents, sent in by primary care physician for consideration of physical therapy after multiple falls and coccyx pain since 06/11/2025. CT head in ED
showed left basal ganglia/periventricular region infarct.
CT chest 07/01/25: 1. No evidence of pulmonary embolism.
CT head 07/01/25: No acute intracranial abnormality noted.
MRI brain 07/04/25: 1.8 cm subacute infarct of the left pisano radiata and superior left basal ganglia. Other small chronic infarcts of the left pisano radiata and left basal ganglia. Chronic lacunar infarcts of the right caudate head and right
thalamus.
CTA head and neck 07/04/25:
1. Stable known subacute and chronic infarcts in the left pisano radiata and left basal ganglia.
2. No high-grade stenosis or occlusion in the [place].
3. 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
4. Bilateral carotid bifurcation atherosclerosis causes 80% stenosis of the left carotid bulb and 50% stenosis of the right carotid bulb. Moderate stenosis at the origin of the right vertebral artery.
PLAN:
# Frequent Falls secondary to possible left basal ganglia/periventricular infarct vs deconditioning from coccyx pain
Orthostats negative
EKG: NSR
CT head and CT PE negative
Brain MRI as above
Neurology consulted: rec aspirin 81 mg daily, Plavix 75 mg daily, atorvastatin 80 mg daily. Rec CTA head and neck + Echo.
CTA as above - 80% stenosis of left carotid bulb. Consult Vascular surgery.
Echo to be done today 07/05.
Trop <0.012 07/04/25, trend trops.
Continue aspirin
PT/OT: PT recommending inpatient rehab at [facility]
Physiatry consulted.
# Coccyx pain secondary to recent fall
No neurological symptoms
Lidocaine patch/ Tylenol for pain control as needed
Hold meloxicam as concern for possible CVA
PT/OT
# Essential Hypertension
# Dyspnea on exertion
Continue lisinopril
CT PE negative
Etiology of dyspnea unclear
# Hyperlipidemia
Continue statin
# Coronary artery disease s/p stents
Continue aspirin�
# History of smoking- 1 pack daily
Cessation of smoking discussed with patient
Patient interested in nicotine patch
Full code
DVT prophylaxis�heparin
Regular diet
Dispo pending clinical improvement and PT
Anticipated Discharge: 24 - 48 hours
Subjective/Interval History
-
Date of Service: July 05, 2025
Upon evaluation of patient today, patient states he still has pain over the tailbone region. He slept okay overnight. Denied lidocaine patch as it does not help his pain. No new complaints.
Objective Data
-
Labs:
Laboratory Results
07/05/25 07/05/25
06:30 07:58
WBC 9.3
Hgb 13.5
Hct 43.7
Plt Count 281
Sodium 140 Cancelled
Potassium 4.1 Cancelled
Chloride 105 Cancelled
Carbon Dioxide 28 Cancelled
BUN 14 Cancelled
Creatinine 0.7 Cancelled
Glucose 91 Cancelled
Calcium 8.9 Cancelled
Total Bilirubin 0.9 Cancelled
AST 24 Cancelled
ALT 16 Cancelled
Alkaline Phosphatase 75 Cancelled
Vital Signs:
Vital Signs
Temp Pulse Resp BP Pulse Ox
98.0 F 74 18 156/76 92
07/05/25 08:02 07/05/25 08:02 07/05/25 08:02 07/05/25 08:02 07/05/25 08:02
I&O
07/04/25 07/05/25 07/06/25
06:59 06:59 06:59
Intake Total 1020 / 1020
Balance 1020 / 1020
Review of Systems
-
History Source: Patient
All other systems: Reviewed and negative
Constitutional: Reports No Symptoms
EENT: Reports No Symptoms Reported
Respiratory: Reports No Symptoms
Cardiac: Reports No Symptoms
Abdomen/GI: Reports No Symptoms
Breast: Reports No Symptoms
Genitourinary: Reports No Symptoms
Neuro: Reports No Symptoms
Endocrine: Reports No Symptoms
Hematologic / Lymphatic: Reports No Symptoms
Allergy / Immunology: Reports No Symptoms
Physical Exam
-
General: Well Developed, Well Nourished, No Apparent Distress, Comfortable and Conversant
HEENT: Normocephalic, Atraumatic and Moist Mucous Membranes
Respiratory: Clear to Auscultation
Cardiac: Regular Rhythm and S1/S2
GI: Soft, Nontender, Nondistended and Normal Bowel Sounds
Musculoskeletal: No Clubbing, No Cyanosis and No Edema
Skin: Warm
Neuro: Awake, AO x 3, Tremors (right hand- baseline) and Nonfocal/Grossly Intact
Psych: Calm
Data Reviewed
-
CT Scan: Report Reviewed by me and Discussed with Physician
MRI: Report Reviewed by me and Discussed with Physician
Labs: Labs Reviewed by me and Discussed with Physician
Old Records: Reviewed
--- NOTE | 2025-07-05 10:41 | PTOTSP ---
FINANCIAL BUSINESS ANALYST Evaluation
Oral/pharyngeal swallowing grossly WFL. Oral stage differences (i.e., prolonged mastication) suspected to be related to lack of lower dentition.
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 Points were lost across all domains
(i.e., visuospatial/executive function, naming, memory, attention, language, abstraction, delayed recall) but most significant with memory.
Recommend:
1. Regular, Thin Liquids
2. Medications as best tolerated
3. General aspiration and reflux precautions
4. Further cognitive linguistic evaluation and treatment at the next level of care. Supervision with higher level cognitive tasks given changes noted above.
--- NOTE | 2025-07-05 11:20 | CM ---
Patient seen at bedside
Echo, MRI lumbar
PT/OT rec acute rehab
patient would like [facility]-referral entered
per [facility] LOC change to inpatient-imm explained & signed. in chart
PLAN: Acute rehab when stable
--- NOTE | 2025-07-05 11:39 | CON.VAS ---
Addendum entered and electronically signed by Elton Almeida III, MD 07/06/25 13:03:
This patient was seen and examined in collaboration with WHITNEY Gusman. I agree with the history and physical exam as well as the assessment and plan. I have the following additions:
Clinical history reviewed.
MRI results reviewed demonstrating left-sided CVA.
CT angiogram of the head and neck personally reviewed. Calcified plaque at the carotid bulb and proximal internal carotid artery contributing to a high-grade stenosis.
Carotid ultrasound reviewed.
On exam patient is alert and well-appearing
No focal neurologic deficits
Neck is soft with decent range of motion
Palpable carotid pulses bilaterally
I had a long conversation with Mr. Trevino and explained the results of his imaging. I suspect the culprit lesion is his left carotid artery stenosis and would classify this as symptomatic. My recommendation is that we move forward with carotid
intervention by way of endarterectomy. The technical aspects of this procedure were discussed with him in detail. The benefits and rationale for this approach were discussed with him in detail. Operative risks were discussed with him in detail
including but not limited to stroke, heart attack, bleeding, infection, cranial nerve injury, wound healing complications and the need for additional surgery. We discussed the anticipated postoperative recovery, both inpatient and outpatient. We
also discussed the importance of risk factor modification and aggressive medical therapy postoperatively as well as lifelong imaging surveillance.
He expressed a clear understanding of our conversation and agrees to proceed with surgery as detailed above
Signed:
Elton Almeida III, MD
Vascular Surgery
[facility]
Original Note:
Consultation
Consultation Request
Date/Time Consultation Performed: 07/05/25 9am
Performing Provider: Elle
Reason for Consultation: Carotid stenosis
Medical History
-
Chief Complaint: Dizziness/ falls
History of Present Illness:
79 yo male with PMH significant for HTN, hyperlipidemia, CAD s/p stenting presented last night for frequent falls, the last being on 07/03. Pt states he was getting out of the shower when hiss right leg 'gave out.' Pt states with the falls he noted
lightheaded/dizziness. Denies and other stroke like symptoms. No visual changes or weakness noted. Per the patient no history of CVA/TIA. Vascular consult for carotid stenosis on CTA. Patient seen at bedside this afternoon with Dr. Almeida.
Patient offers no complaints at this time.
CTA head and neck: Stable known subacute and chronic infarcts in the left pisano radiata and left basal ganglia. Bilateral carotid bifurcation atherosclerosis causes 80% stenosis of the left carotid bulb and 50% stenosis of the right carotid bulb.
Moderate stenosis at the origin of the right vertebral artery
Carotid ultrasound: Calcified plaque within the left carotid bulb, measurements on the current study suggestive of less than 50% stenosis. Velocities are lower than those measured on the prior study. Calcified right carotid bulb plaque, measurements
suggestive of less than 50% stenosis. No significant change compared to prior study. Calcified common carotid arterial plaque on each side.
Past Medical History
Past Medical History: COPD and HTN
Past Surgical History: Other (Hernia repair)
Social History
Tobacco: Smoker (1 pack/day)
Drug: None
Family History
Family History: Reviewed & Not Pertinent
Allergies / Home Medications
Allergy/AdvReac Type Severity Reaction Status Date / Time
No Known Allergies Allergy Verified 07/01/25 15:23
�Medication �Instructions �Recorded �Confirmed �Type
atorvastatin 80 mg tablet 80 mg PO DAILY 03/06/21 07/03/25 History
lisinopril 2.5 mg tablet 2.5 mg PO DAILY 03/06/21 07/03/25 History
aspirin 81 mg tablet 81 mg PO DAILY 07/03/25 07/03/25 History
Review of Systems
-
History Source: Patient
All other systems: Negative unless noted
Constitutional: Reports No Symptoms
EENT: Reports No Symptoms
Respiratory: Reports No Symptoms
Cardiac: Reports No Symptoms
Abdomen/GI: Reports No Symptoms
: Reports No Symptoms
Musculoskeletal: Reports No Symptoms
Skin: Reports No Symptoms
Neurological: Reports Dizzy
Physical Exam
Vital Signs
Temp Pulse Resp BP Pulse Ox
98.0 F 74 18 156/76 92
07/05/25 08:02 07/05/25 08:02 07/05/25 08:02 07/05/25 08:02 07/05/25 08:02
Lab Results
07/05/25 06:30
07/05/25 07:58
Troponin I < 0.012 ng/ml 07/04/25 10:35
Physical Exam
General: No Apparent Distress
HEENT: Normocephalic and Atraumatic
Respiratory: Non Labored Respirations
Cardiac: Negative JVD
GI: Soft
Musculoskeletal: No Clubbing and No Cyanosis
Skin: Warm
Neuro: Awake, Alert, Oriented and No Motor Deficits
Psych: Calm
Assessment / Plan
-
79-year-old male here with dizziness and frequent falls
CTA head and neck: Stable known subacute and chronic infarcts in the left pisano radiata and left basal ganglia. Bilateral carotid bifurcation atherosclerosis causes 80% stenosis of the left carotid bulb
Plan:
Options discussed with patient at bedside with Dr. Almeida. Patient states ' do anything to keep me alive.'
N.p.o. after midnight for CEA tomorrow with Dr. Almeida
Data Reviewed
-
CT Scan: Discussed with Patient
Ultrasound: Discussed with Patient
[2025-07-05 13:36] VITALS: BP 129/62; PULSE 71
[2025-07-05 15:21] VITALS: BP 111/54
[2025-07-05 19:00] VITALS: BP 98/45
[2025-07-05] MEDS: REMOVE LIDOCAINE PATCH 1 PATCH REMOVE (19:48)
[2025-07-05 23:00] VITALS: BP 125/54
[2025-07-06] VITALS (15 sets, daily range): BP systolic 91–134; BP diastolic 40–61; PULSE 62
[2025-07-06 06:26] LABS: Hematocrit 42.5 % (39.0-52.0); Hemoglobin 13.5 g/dL (13.0-18.0); Mean Corp Hgb Conc. 31.8 g/dL (33.0-37.0); Mean Corpuscular Volume 93.0 fL (80.0-94.0); Platelet Count 289 10^3/uL (130-400); Red Cell Dist. Width 15.6 % (11.5-14.5)
[2025-07-06 07:04] LABS: Troponin I < 0.012 ng/ml
[2025-07-06 07:13] LABS: Blood Urea Nitrogen 18 mg/dl (9-20); Calcium 9.2 mg/dl (8.4-10.2); Carbon Dioxide 31 mmol/L (22-30); Chloride 105 mmol/L (98-107); Estimated Creatinine Clearance 60 ml/min; Glucose 97 mg/dl (70-99); Magnesium 2.1 mg/dl (1.6-2.3); Potassium 4.4 mmol/L (3.5-5.1); Sodium 138 mmol/L (135-145); eGFR > 60.00
--- NOTE | 2025-07-06 08:10 | CM ---
chart reviewed
per note - OR today-CEA with Dr Almeida
PT/OT rec acute rehab
referral in [facility] for [facility]
PLAN: Acute Rehab when stable
[2025-07-06] MEDS: ASPIR LOW (ENTERIC COATED) 81 MG PO (08:35)
[2025-07-06] MEDS: ZESTRIL 2.5 MG PO (08:35)
[2025-07-06] MEDS: LIPITOR 80 MG PO (08:36)
[2025-07-06] MEDS: LIDOCAINE 4% PATCH TOPICAL (08:36)
[2025-07-06] MEDS: CYANOCOBALAMIN 1000 MCG IM (08:38)
[2025-07-06] MEDS: PLAVIX 75 MG PO (08:40)
--- NOTE | 2025-07-06 09:00 | W.PN.HOSP.TC ---
Addendum entered and electronically signed by Elton Dugan MD 07/06/25 15:50:
Late documentation. Patient was seen earlier today
Seen and examined the patient. Agree with plan set forth by the resident. See changes in my documentation.
79-year-old male with falls. He had an injury while lifting something heavy on June 11 and fell backwards on his bottom. He developed pain in the coccyx since then. He was seen in the ER 2 days ago with dizziness and falls states that his
legs give out. Also had some worsening shortness of breath during the ER visit head CT showed a left basal ganglia/periventricular infarct. Patient was advised to get admitted for an MRI but he wanted to go home. Aspirin was started.
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
CT PE Study-No evidence of pulmonary embolism.No significant acute abnormality identified in the chest, as described above.
MRI of the brain -1.8 cm subacute infarct of the left pisano radiata and superior left basal ganglia.Other small chronic infarcts of the left pisano radiata and left basal ganglia. Chronic lacunar infarcts of the right caudate head and right
thalamus.
CTA head and neck-subacute on chronic infarct in the left pisano radiata and left basal ganglia. No high-grade stenosis or occlusion of the [place]. 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 Bilateral carotid
bifurcation atherosclerosis causing 80% stenosis of the left carotid bulb and 50% stenosis of the right carotid bulb. Moderate stenosis at the origin of the right vertebral artery.
Vascular ultrasound-calcific plaque in the left carotid bulb suggestive of less than 50% stenosis. Calcific right carotid bulb plaque less than 50% stenosis
Echo-EF 62%. No changes since 2014. Thickened aortic valve with adequate leaflet excursion. Mild concentric LVH. Mild MR
Lumbar spine MRI-no acute fracture. 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
Cardiovascular system S1-S2 appreciated, short systolic murmur at apex
Chest clear to auscultation
Abdomen soft and nontender
Neuro exam-no facial droop sensorimotor exam mostly intact
Carotid bruit noted
# Frequent falls
Orthostatic vital signs negative
CT PE study unremarkable
MRI of the brain with CVA likely reason-subacute infarct of the left pisano radiata and superior left basal ganglia
Carotid stenosis noted
Continue aspirin, Plavix, statin
PT OT
Vascular surgery consulted. Patient is 4 OR today
# Coccygeal pain with recent fall- MRI noted
# Dyspnea on exertion-CT PE study negative. Echo without any acute changes. Possible deconditioning. No real reasons. Patient is not hypoxic
# Hypertension- Lisinopril. Postoperative blood pressure monitoring in ICU
# Hyperlipidemia- Continue Statin
# CAD status post stents- Now on aspirin, Statin
# Active smoker- Smokes 1 pack/day-smoking cessation counseling
# DVT prophylaxis�Lovenox
# Full CODE
Discussed with and grandson at bedside
Part of this note was created using voice recognition system. Occasional wrong word or��sound alike� substitutions may have inadvertently occurred due to the inherent limitations of voice recognition software. If noted kindly bring it to my
attention for correction.
Original Note:
Today's Communication/Plan
-
CEA today with Dr. Almeida
Assessment / Plan
Assessment / Plan
ASSESSMENT:
A 79-year-old male current smoker with history of hypertension, hyperlipidemia, CAD status post stents, sent in by primary care physician for consideration of physical therapy after multiple falls and coccyx pain since 06/11/2025. CT head in ED
showed left basal ganglia/periventricular region infarct.
CT chest 07/01/25: 1. No evidence of pulmonary embolism.
CT head 07/01/25: No acute intracranial abnormality noted.
MRI brain 07/04/25: 1.8 cm subacute infarct of the left pisano radiata and superior left basal ganglia. Other small chronic infarcts of the left pisano radiata and left basal ganglia. Chronic lacunar infarcts of the right caudate head and right
thalamus.
CTA head and neck 07/04/25:
1. Stable known subacute and chronic infarcts in the left pisano radiata and left basal ganglia.
2. No high-grade stenosis or occlusion in the [place].
3. 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
4. Bilateral carotid bifurcation atherosclerosis causes 80% stenosis of the left carotid bulb and 50% stenosis of the right carotid bulb. Moderate stenosis at the origin of the right vertebral artery.
ECHO 07/05/25:�
1. Left ventricular ejection fraction is normal with an ejection fraction of 62 % by Esposito's biplane method of discs.
2. Compared to a prior transthoracic echocardiogram study from December 2014 no significant changes are seen.
3. Thickened aortic valve with adequate leaflet excursion.
4. Mild concentric left ventricular hypertrophy.
5. Thickened mitral valve with dense posterior mitral annular calcification and mild mitral regurgitation.
PLAN:
# Frequent Falls secondary to possible left basal ganglia/periventricular infarct vs deconditioning from coccyx pain
Orthostats negative
EKG: NSR
CT head and CT PE negative
Brain MRI as above
Neurology consulted: rec aspirin 81 mg daily, Plavix 75 mg daily, atorvastatin 80 mg daily.
CTA as above - 80% stenosis of left carotid bulb. Vascular surgery consulted. Patient scheduled for carotid endarterectomy today 07/06/[address] Almeida
Echo as above. EF 62%.
Trop negative x3.
Continue aspirin
PT/OT: PT recommending inpatient rehab at [place]
Physiatry consulted.
# Coccyx pain secondary to recent fall
No neurological symptoms
Lidocaine patch/ Tylenol for pain control as needed
Hold meloxicam as concern for possible CVA
PT/OT
# Essential Hypertension
# Dyspnea on exertion
Continue lisinopril
CT PE negative
Etiology of dyspnea unclear
# Hyperlipidemia
Continue statin
# Coronary artery disease s/p stents
Continue aspirin�
# History of smoking- 1 pack daily
Cessation of smoking discussed with patient
Patient interested in nicotine patch
Full code
DVT prophylaxis�heparin
Regular diet
Dispo pending clinical improvement and PT
Anticipated Discharge: 24 - 48 hours
Subjective/Interval History
-
Date of Service: July 06, 2025
Upon evaluation of patient today, he is comfortably lying on the bed watching TV. He denies new complaints, and states he feels well. Patient is ready for his procedure today.
Objective Data
-
Labs:
Laboratory Results
07/06/25
06:17
WBC 10.6
Hgb 13.5
Hct 42.5
Plt Count 289
Sodium 138
Potassium 4.4
Chloride 105
Carbon Dioxide 31 H
BUN 18
Creatinine 0.8
Glucose 97
Calcium 9.2
Vital Signs:
Vital Signs
Temp Pulse Resp BP Pulse Ox
97.7 F 65 16 122/61 94
07/06/25 07:35 07/06/25 07:35 07/06/25 07:35 07/06/25 07:35 07/06/25 07:35
I&O
07/05/25 07/06/25 07/07/25
06:59 06:59 06:59
Intake Total 1020 / 1020 390 / 390
Balance 1020 / 1020 390 / 390
Review of Systems
-
History Source: Patient
Constitutional: Reports No Symptoms
EENT: Reports No Symptoms Reported
Respiratory: Reports No Symptoms
Cardiac: Reports No Symptoms
Abdomen/GI: Reports No Symptoms
Breast: Reports No Symptoms
Skin: Reports No Symptoms
Neuro: Reports No Symptoms
Endocrine: Reports No Symptoms
Hematologic / Lymphatic: Reports No Symptoms
Physical Exam
-
General: Well Developed, Well Nourished, No Apparent Distress, Comfortable and Conversant
HEENT: Normocephalic, Atraumatic and Moist Mucous Membranes
Respiratory: Clear to Auscultation
Cardiac: Regular Rhythm and S1/S2
GI: Soft, Nontender, Nondistended, Normal Bowel Sounds and No Hepatosplenomegaly
Musculoskeletal: No Clubbing, No Cyanosis and No Edema
Skin: Warm
Neuro: Awake, AO x 3 and Nonfocal/Grossly Intact
Psych: Calm
Data Reviewed
-
Medical Tests (Nuc Med, Echo etc): Report Reviewed by me and Discussed with Physician
Labs: Labs Reviewed by me and Discussed with Physician
Old Records: Reviewed
[2025-07-06] MEDS: PERIDEX 0.12% ORAL RINSE 15 ML PO (10:01)
[2025-07-06] MEDS: BACTROBAN 2% OINTMENT 1 APPLIC NASAL (10:02)
[2025-07-06] MEDS: ANCEF 10 IV (10:03)
--- NOTE | 2025-07-06 13:03 | W.SUR.PREOP ---
Pre-Operative Surgical Note
-
I have examined this patient prior to the performance of the scheduled procedure.
The patient's condition is unchanged from the time of the current History and
Physical and the patient is able to undergo the scheduled procedure.
[2025-07-06 15:06] LABS: ACT-LR - POC 271 Seconds (116-155)
--- NOTE | 2025-07-06 16:40 | OR.RPT ---
Operative Report
Operative Report
Date of Operation: 07/06/2025
Pre Op Diagnosis: Symptomatic left carotid artery stenosis
Post Op Diagnosis: Symptomatic left carotid artery stenosis
Procedure: LEFT carotid endarterectomy with patch angioplasty using bovine pericardium
Surgeon: Elton Almeida III, MD
Conveyor Maintenance Mechanic: Jo Ann Mata MD PGY2
Anesthesia: General
Complications: None
History and Indications for Procedure: 79-year-old male with symptomatic left carotid artery stenosis
Procedure in Detail: Facundo Trevino was correctly identified and placed supine on the operating table. After adequate induction of anesthesia the left neck was positioned, prepped and draped in the usual sterile fashion. Preoperative antibiotics
were administered. A time out procedure was performed with the nursing and anesthesia staff confirming the patients identity as well as the nature and laterality of the procedure.
The carotid bifurcation was marked with ultrasound at the beginning of the case. The incision was planned accordingly. An incision was made along the anterior border of the left sternocleidomastoid muscle. Electrocautery was used to divide the
subcutaneous tissue and platysma. The carotid sheath was entered with sharp dissection. The internal jugular vein was retracted laterally. The vagus nerve was identified and protected throughout the case. The common carotid artery was identified at
the base of this incision and carefully encircled with a vessel loop. The patient was systemically heparinized. The dissection was continued distally towards the carotid bifurcation. The facial vein was skeletonized, ligated and divided between ties
and clips. The proximal external carotid artery was encircled with a vessel loop. The distal internal carotid artery was encircled with a vessel loop at a soft spot on the artery beyond the plaque. The hypoglossal nerve was identified and protected.
The internal vessel loop was secured followed by the common and external. An arteriotomy was made on the distal common carotid artery with an 11-blade. This was extended proximally and distally with Shipman scissors. The arteriotomy was extended
distally through the plaque to an area of normal appearing internal carotid artery. The distal vessel loop was replaced with a short tip hockey-stick type vascular clamp. An endarterectomy was performed with a [place] elevator in the standard
fashion. The proximal extent of the plaque was transected with scissors. The distal end of the plaque in the internal carotid artery was feathered with a nice result. No distal intimal flap was identified. The plaque extending into the external
carotid artery was everted. Once the plaque was fully removed the endarterectomy plane was irrigated with heparinized saline and any loose fronds of tissue were removed. A pre-cut piece of bovine pericardium was sewn in place using a running 6-0
Prolene suture. Prior to the completion of the patch the common carotid was allowed to forward bleed and the external was allowed to back bleed. The area under the patch was irrigated with heparinized saline to remove any potential thrombus or
debris. The anastomosis was completed.
The external vessel loop was released first, followed by the common and then the internal. There was an excellent pulse in the distal internal carotid artery. An excellent quality Doppler signal in the distal internal carotid artery was also
confirmed. The patch suture line was closely inspected for hemostasis and was achieved. Protamine was administered. Hemostasis was achieved in the wound bed. The wound was irrigated with saline solution.
The wound was then closed in layers. Sterile skin glue was applied. The patient awoke from anesthesia with no immediate neuro deficits and was taken to the PACU in stable condition.
Attestation: I was present and responsible for the entire procedure
Signed:
Elton Almeida III, MD
Vascular Surgery
[facility]
[2025-07-06] MEDS: NEO-SYNEPHRINE 250 IV (17:17)
[2025-07-06] MEDS: DILAUDID 0.25 MG IV (17:29)
[2025-07-06] MEDS: NSS 1000 IV (18:15)
--- NOTE | 2025-07-06 18:35 | PTCARENOTE ---
Received pt from PACU, drowsy, dozing intermittently, oriented x 3, very ELIM IRA. [place], follows commands, denies pain, but L neck tender to touch, soft. L neck s/p CEA, well approximated, no swelling, minimal ecchymosis, surgical glue intact. Ice pack
applied. Gilbert @ 20mcg/min, 6ml to maintain SBP > 100. L radial A line correlating w/ cuff BP, optimal waveform. On 3L NC sating 98%. RR 16 unlabored.
--- NOTE | 2025-07-06 19:30 | PTCARENOTE ---
Pt experiencing N/V. Emesis moderate amount and greenish in color. PRN IV zofran administered. Pt states he feels better after event.
[2025-07-06] MEDS: ZOFRAN 4 MG IV (19:33)
--- NOTE | 2025-07-06 21:15 | PTCARENOTE ---
Resumed care of pt this evening. Received pt on toño gtt infusing at 20 mcg/min via right peripheral IV site. Pt is A&Ox3, can move all 4 extremities, and can make needs known. Pt's pupils are equal and reactive to light. Left neck surgical incision
is well approximated, surgical adhesive present,open to air w/ some ecchymosis present.
[2025-07-06] MEDS: REMOVE LIDOCAINE PATCH REMOVE (22:11)
[2025-07-06] MEDS: DILAUDID 0.5 MG IV (23:54)
[2025-07-07] VITALS (16 sets, daily range): BP systolic 95–122; BP diastolic 37–83; PULSE 70–74; BMI 25.0
--- NOTE | 2025-07-07 00:15 | PTCARENOTE ---
Q1H Neurological checks maintained and remain unchanged.
[2025-07-07] MEDS: ZOFRAN 4 MG IV (03:43)
--- NOTE | 2025-07-07 04:00 | PTCARENOTE ---
Pt had another episode of N/V. Moderate amount of liquid emesis that was green in color. PRN IV zofran administered by this RN.
[2025-07-07 04:05] LABS: Hematocrit 36.2 % (39.0-52.0); Hemoglobin 11.5 g/dL (13.0-18.0); Mean Corp Hgb Conc. 31.8 g/dL (33.0-37.0); Mean Corpuscular Volume 93.8 fL (80.0-94.0); Platelet Count 268 10^3/uL (130-400); Red Cell Dist. Width 15.3 % (11.5-14.5)
[2025-07-07 04:11] LABS: INR 1.04; PT 14.0 Sec (11.4-14.6)
[2025-07-07 04:12] LABS: APTT 28.5 Sec (23.4-35.0)
[2025-07-07] MEDS: NSS 1000 IV (04:20)
--- NOTE | 2025-07-07 04:30 | PTCARENOTE ---
Gilbert infusion turned off per protocol.
[2025-07-07 04:33] LABS: Blood Urea Nitrogen 16 mg/dl (9-20); Calcium 8.2 mg/dl (8.4-10.2); Carbon Dioxide 29 mmol/L (22-30); Chloride 106 mmol/L (98-107); Estimated Creatinine Clearance 80 ml/min; Glucose 147 mg/dl (70-99); Magnesium 2.0 mg/dl (1.6-2.3); Potassium 4.2 mmol/L (3.5-5.1); Sodium 136 mmol/L (135-145); eGFR > 60.00
[2025-07-07] MEDS: ZESTRIL 2.5 MG PO (07:25)
[2025-07-07] MEDS: CYANOCOBALAMIN 1000 MCG IM (07:25)
[2025-07-07] MEDS: PROTONIX 40 MG PO (07:26)
[2025-07-07] MEDS: ASPIR LOW (ENTERIC COATED) 81 MG PO (07:26)
[2025-07-07] MEDS: PLAVIX 75 MG PO (07:26)
[2025-07-07] MEDS: LIDOCAINE 4% PATCH 1 PATCH TOPICAL (07:26)
[2025-07-07] MEDS: LIPITOR 80 MG PO (07:26)
--- NOTE | 2025-07-07 07:42 | W.PN.VS ---
Addendum entered and electronically signed by Lj Levy MD 07/07/25 10:26:
Seen and examined with VOICE AND DATA TECHNICIAN. Agree with findings as noted below. Left neck incision is clean dry and intact. No hematoma. Neurologically no focal deficits. Tongue midline. Plan/as discussed and noted below.
Original Note:
Today's Communication / Plan
-
Seen and assessed with Dr. Levy
Assessment/Plan
-
Postop day 1 left CEA
Plan:
DC A-line
DC IV fluids
Out of bed/ambulate
P.o. medications
Increase diet
Likely can discharge later today from vascular standpoint
Subjective Data
-
Date of Service: July 07, 2025
Patient seen at bedside with Dr. Levy. Patient offers no complaints at this time. No events overnight.
Objective Data
-
Vital Signs
Temp Pulse Resp BP Pulse Ox
97.9 F 69 16 110/58 92
07/07/25 04:13 07/07/25 07:25 07/07/25 06:30 07/07/25 07:25 07/07/25 06:30
Intake and Output
07/06/25 07/07/25 07/08/25
06:59 06:59 06:59
Intake Total 390 / 390 200 / 200
Balance 390 / 390 200 / 200
Intake:
Oral fluids 390 / 390
IV fluids (Total) 200 / 200
NSS 200 / 200
Other:
Number of approximated MODERATE 2
amounts of urine
Lab Results
07/07/25 03:52
07/07/25 03:52
Calcium 8.2 mg/dl (8.4-10.2) L 07/07/25 03:52
Phosphorus 4.0 mg/dl (2.5-4.5) 07/07/25 03:52
Magnesium 2.0 mg/dl (1.6-2.3) 07/07/25 03:52
Total Bilirubin Cancelled 07/05/25 07:58
AST Cancelled 07/05/25 07:58
ALT Cancelled 07/05/25 07:58
Alkaline Phosphatase Cancelled 07/05/25 07:58
Total Protein Cancelled 07/05/25 07:58
Albumin Cancelled 07/05/25 07:58
Physical Exam
-
AAO x 3
No tachypnea on room air
No tachycardia
Abdomen soft
Neck site clean, dry, intact, soft, flat
Moves all extremities
Tongue midline
--- NOTE | 2025-07-07 08:00 | W.PN.HOSP.TC ---
Addendum entered and electronically signed by Elton Dugan MD 07/07/25 14:31:
Late documentation. Patient was seen earlier today
Seen and examined the patient. Agree with plan set forth by the resident. See changes in my documentation.
79-year-old male with falls. He had an injury while lifting something heavy on June 11 and fell backwards on his bottom. He developed pain in the coccyx since then. He was seen in the ER 2 days ago with dizziness and falls states that his
legs give out. Also had some worsening shortness of breath during the ER visit head CT showed a left basal ganglia/periventricular infarct. Patient was advised to get admitted for an MRI but he wanted to go home. Aspirin was started.
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
CT PE Study-No evidence of pulmonary embolism.No significant acute abnormality identified in the chest, as described above.
MRI of the brain -1.8 cm subacute infarct of the left pisano radiata and superior left basal ganglia.Other small chronic infarcts of the left pisano radiata and left basal ganglia. Chronic lacunar infarcts of the right caudate head and right
thalamus.
CTA head and neck-subacute on chronic infarct in the left pisano radiata and left basal ganglia. No high-grade stenosis or occlusion of the [place] of [place]omo. 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 Bilateral carotid
bifurcation atherosclerosis causing 80% stenosis of the left carotid bulb and 50% stenosis of the right carotid bulb. Moderate stenosis at the origin of the right vertebral artery.
Vascular ultrasound-calcific plaque in the left carotid bulb suggestive of less than 50% stenosis. Calcific right carotid bulb plaque less than 50% stenosis
Echo-EF 62%. No changes since 2014. Thickened aortic valve with adequate leaflet excursion. Mild concentric LVH. Mild MR
Lumbar spine MRI-no acute fracture. 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
Cardiovascular system S1-S2 appreciated, short systolic murmur at apex
Chest clear to auscultation
Abdomen soft and nontender
Neuro exam-grossly nonfocal
Carotid left side with surgical wound
# Frequent falls
Orthostatic vital signs negative
CT PE study unremarkable
MRI of the brain with CVA likely reason-subacute infarct of the left pisano radiata and superior left basal ganglia
Carotid stenosis noted
Continue aspirin, Plavix, statin
PT OT
Status post carotid endarterectomy on the left side on 07/06/2025
# Coffee-ground emesis
Possibly secondary to constipation but since patient is on dual antiplatelets we will get opinion from GI prior to discharge
Continue PPI
# Constipation-treat
# Coccygeal pain with recent fall- MRI noted
# Dyspnea on exertion-CT PE study negative. Echo without any acute changes. Possible deconditioning. No real reasons. Patient is not hypoxic
# Hypertension- Lisinopril. Postoperative blood pressure monitoring in ICU
# Hyperlipidemia- Continue Statin
# CAD status post stents- Now on aspirin, Statin
# Active smoker- Smokes 1 pack/day-smoking cessation counseling
# DVT prophylaxis�Lovenox
# Full CODE
Discussed with RN at bedside
Part of this note was created using voice recognition system. Occasional wrong word or��sound alike� substitutions may have inadvertently occurred due to the inherent limitations of voice recognition software. If noted kindly bring it to my
attention for correction.
Original Note:
Today's Communication/Plan
-
GI consult
XR abdomen
Assessment / Plan
Assessment / Plan
ASSESSMENT:
A 79-year-old male current smoker with history of hypertension, hyperlipidemia, CAD status post stents, sent in by primary care physician for consideration of physical therapy after multiple falls and coccyx pain since 06/11/2025. CT head in ED
showed left basal ganglia/periventricular region infarct.
CT chest 07/01/25: 1. No evidence of pulmonary embolism.
CT head 07/01/25: No acute intracranial abnormality noted.
MRI brain 07/04/25: 1.8 cm subacute infarct of the left pisano radiata and superior left basal ganglia. Other small chronic infarcts of the left pisano radiata and left basal ganglia. Chronic lacunar infarcts of the right caudate head and right
thalamus.
CTA head and neck 07/04/25:
1. Stable known subacute and chronic infarcts in the left pisano radiata and left basal ganglia.
2. No high-grade stenosis or occlusion in the [place] of [place].
3. 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
4. Bilateral carotid bifurcation atherosclerosis causes 80% stenosis of the left carotid bulb and 50% stenosis of the right carotid bulb. Moderate stenosis at the origin of the right vertebral artery.
ECHO 07/05/25:�
1. Left ventricular ejection fraction is normal with an ejection fraction of 62 % by Esposito's biplane method of discs.
2. Compared to a prior transthoracic echocardiogram study from December 2014 no significant changes are seen.
3. Thickened aortic valve with adequate leaflet excursion.
4. Mild concentric left ventricular hypertrophy.
5. Thickened mitral valve with dense posterior mitral annular calcification and mild mitral regurgitation.
PLAN:
# Frequent Falls secondary to possible left basal ganglia/periventricular infarct vs deconditioning from coccyx pain
Orthostats negative
EKG: NSR
CT head and CT PE negative
Brain MRI as above
Neurology consulted: rec aspirin 81 mg daily, Plavix 75 mg daily, atorvastatin 80 mg daily.
CTA as above - 80% stenosis of left carotid bulb.
Vascular surgery consulted. Carotid endarterectomy 07/06/[address] Almeida. Postop day 1 left CEA. A-line and IV fluids discontinued. P.o. medications, increase diet today.
Echo as above. EF 62%.
Trop negative x3.
Continue aspirin
PT/OT: PT recommending inpatient rehab at [facility]
Physiatry Dr. Whiteside consulted.
# Coccyx pain secondary to recent fall
No neurological symptoms
Lidocaine patch/ Tylenol for pain control as needed
Hold meloxicam as concern for possible CVA
PT/OT
# Coffee ground emesis
# Nausea
Patient postop day 1 from left CEA 07/06/2025, hemodynamically stable
More likely stress related gastritis, medication induced gastritis. Less likely Analia-Glynn tear, peptic ulcer disease.
Monitor vitals, stool/emesis for evidence of active bleeding.
Clear liquids, GI consulted
Continue pantoprazole daily, and Zofran PRN
Repeat H&H in 6 hours to assess for drop
# Constipation
No bowel movement since 07/03/2025.
Patient denies abdominal pain, nausea, vomiting. Bowel sounds are present on auscultation.
Bowel regimen
Will order XR abdomen
# Essential Hypertension
# Dyspnea on exertion
Continue lisinopril
CT PE negative
Etiology of dyspnea unclear
# Hyperlipidemia
Continue statin
# Coronary artery disease s/p stents
Continue aspirin�
# History of smoking- 1 pack daily
Cessation of smoking discussed with patient
Patient interested in nicotine patch
Full code
DVT prophylaxis�heparin
Anticipated Discharge: 24 - 48 hours
Subjective/Interval History
-
Date of Service: July 07, 2025
Patient evaluated at bedside. Sitting in the sofa. He states he had nausea overnight which led him to not get sufficient sleep. He had 1 episode of coffee-ground emesis around 8 AM this morning.
He states his last bowel movement was on 07/03/2025. No other complaints.
Objective Data
-
Labs:
Laboratory Results
07/07/25
03:52
WBC 14.0 H
Hgb 11.5 L
Hct 36.2 L
Plt Count 268
PT 14.0
INR 1.04
APTT 28.5
Sodium 136
Potassium 4.2
Chloride 106
Carbon Dioxide 29
BUN 16
Creatinine 0.6 L
Glucose 147 H
Calcium 8.2 L
Vital Signs:
Vital Signs
Temp Pulse Resp BP Pulse Ox
97.9 F 69 16 110/58 92
07/07/25 04:13 07/07/25 07:25 07/07/25 06:30 07/07/25 07:25 07/07/25 06:30
I&O
07/06/25 07/07/25 07/08/25
06:59 06:59 06:59
Intake Total 390 / 390 200 / 200
Balance 390 / 390 200 / 200
Review of Systems
-
History Source: Patient
Constitutional: Reports No Symptoms
EENT: Reports No Symptoms Reported
Respiratory: Reports No Symptoms
Cardiac: Reports No Symptoms
Abdomen/GI: Reports Nausea and Hematemesis
Breast: Reports No Symptoms
Genitourinary: Reports No Symptoms
Musculoskeletal: Reports No Symptoms
Skin: Reports No Symptoms
Neuro: Reports No Symptoms
Endocrine: Reports No Symptoms
Physical Exam
-
General: Well Developed, Well Nourished, No Apparent Distress, Comfortable and Conversant
HEENT: Normocephalic, Atraumatic and Moist Mucous Membranes
Respiratory: Clear to Auscultation
Cardiac: Regular Rhythm and S1/S2
GI: Soft, Nontender, Nondistended, Normal Bowel Sounds and No Hepatosplenomegaly
Musculoskeletal: No Clubbing, No Cyanosis and No Edema
Skin: Warm
Neuro: Awake and AO x 3
Psych: Calm and Intact Judgement/Insight
Data Reviewed
-
Labs: Labs Reviewed by me and Discussed with Physician
Old Records: Reviewed
--- NOTE | 2025-07-07 08:20 | CON.INTV ---
Consultation
Consultation Request
Date/Time Consultation Requested: 07/06/2025 - 1504
Date/Time Consultation Performed: 07/07/2025 - 809
Requesting Provider: WHITNEY Gusman
Performing Provider: Dr. Frey
Reason for Consultation: s/p L-CEA
Medical History
-
Chief Complaint: Frequent falls, sent in by PCP to consider physical therapy
History of Present Illness:
79-year-old male with a past medical history of CAD s/p MARU to pLAD (Sep 2011), history of UT, history of TIA, PVD, chronic HFrEF/ICM, history of emphysema/COPD, hypercholesterolemia and history of frequent falls who presents with 4�5 falls since
last month with no loss of consciousness. No recent head strike reported although he does have pain at his tailbone from prior fall. Patient was recently at his PCP on 07/03, and had gone to [facility] ER as well as [facility] prior to that
visit. He had another fall the night prior after exiting his shower and the was unable to get him off the floor for about an hour. Due to him not being able to be cared for by his at home, he went to the ER here at for further
management. Recent CT head on 07/01 showed no acute intracranial abnormality. Neurology was consulted and a brain MRI performed on 07/04/2025 showed a 1.8 cm subacute infarct in the left pisano radiata and superior left basal ganglia. Other small
chronic infarcts were seen in the left pisano radiata and left basal ganglia as well as the right caudate head and right thalamus. CTA head/neck showed a 3 x 4 mm saccular aneurysm of the anterior communicating artery, and bilateral carotid
bifurcation atherosclerosis with 80% stenosis of the left carotid bulb and 50% stenosis of the right carotid bulb. Vascular ultrasound assessed in the carotids performed on 07/05 showed calcified plaque within the left carotid bulb suggesting <50%
stenosis, as well as calcified plaque at the right carotid bulb suggesting <50% stenosis. Vascular surgery consulted, and based on the CTA head/neck imaging with what appears to be high-grade stenosis seen at the left carotid bulb + proximal ICA,
he was recommended for vascular intervention. On 07/06, he underwent a left carotid endarterectomy with patch angioplasty using bovine pericardium. There were no immediate complications. He was transferred to the ICU postoperatively, and
Transport Assistant services consulted for additional management/recommendations.
Pt seen and evaluated this AM. No BM since Saturday. A line out today. Had coffee ground emesis this AM. Patient's , Lexis, present at bedside. Patient is currently on room air breathing comfortably, with heart rate 72 and BP 115/65. He
currently denies GARSIA, abdominal pain, fevers or chills.
PMHx: CAD s/p MARU to pLAD (Sep 2011), history of UT, history of TIA, PVD, chronic HFrEF/ICM, history of emphysema/COPD, hypercholesterolemia and history of frequent falls
PSHx: Coronary catheterization (September 2011), left L4-5 ILESI
Past Medical History
Past Medical History: Other (Above as per HPI)
Past Surgical History: Other (Above as per HPI)
Social History
Tobacco: Smoker
Alcohol: None
Drug: None
Personal:
Living: With Family ( = Lexis)
Employment: Not Employed
Family History
Family History: Reviewed & Not Pertinent
Allergies / Home Medications
Allergies
Allergy/AdvReac Type Severity Reaction Status Date / Time
No Known Allergies Allergy Verified 07/01/25 15:23
Home Medications
�Medication �Instructions �Recorded �Confirmed �Last Taken �Type
atorvastatin 80 mg tablet 80 mg PO DAILY cholesterol 03/06/21 07/03/25 07/03/25 History
lisinopril 2.5 mg tablet 2.5 mg PO DAILY Blood Pressure 03/06/21 07/03/25 07/03/25 History
aspirin 81 mg tablet 81 mg PO DAILY Blood Clot 07/03/25 07/03/25 07/03/25 History
Prevention/Tx
Review of Systems
-
History Source: Patient
All other systems: Negative unless noted
Vitals / Labs / Diagnostic Testing
Vital Signs
Temp Pulse Resp BP Pulse Ox
98 F 70 20 106/50 97
07/07/25 08:00 07/07/25 10:45 07/07/25 10:45 07/07/25 10:00 07/07/25 11:02
Lab Data
07/07/25 03:52
07/07/25 03:52
Laboratory Results
07/07/25
03:52
PT 14.0
INR 1.04
APTT 28.5
Diagnostic Testing:
Physical Exam
-
HEENT: Normocephalic, Anicteric and Other (Vertical incision which appears clean and dry along left anterior neck)
Cardiovascular: S1/S2 and Peripheral Edema (negative)
Respiratory: Clear, Wheeze (negative), Rales (negative), Rhonchi (negative) and Non-Labored Respirations
GI: Soft, Non Distended, Non Tender and Normal Bowel Sounds
Neurology: Awake, Alert and Tremors (negative)
Skin: Warm and Dry
General: Respiratory Distress (negative), Comfortable, Fever (negative) and Chills (negative)
Assessment
-
Assessment: 79-year-old male with a past medical history of CAD s/p MARU to pLAD (Sep 2011), history of UT, history of TIA, PVD, chronic HFrEF/ICM, history of emphysema/COPD, hypercholesterolemia and history of frequent falls who presents with 4�5
falls since last month with no loss of consciousness. No recent head strike reported although he does have pain at his tailbone from prior fall. Patient was recently at his PCP on 07/03, and had gone to [facility] ER as well as [facility] prior
to that visit. He had another fall the night prior after exiting his shower and the was unable to get him off the floor for about an hour. Due to him not being able to be cared for by his at home, he went to the ER here at for further
management. Recent CT head on 07/01 showed no acute intracranial abnormality. Neurology was consulted and a brain MRI performed on 07/04/2025 showed a 1.8 cm subacute infarct in the left pisano radiata and superior left basal ganglia. Other small
chronic infarcts were seen in the left pisano radiata and left basal ganglia as well as the right caudate head and right thalamus. CTA head/neck showed a 3 x 4 mm saccular aneurysm of the anterior communicating artery, and bilateral carotid
bifurcation atherosclerosis with 80% stenosis of the left carotid bulb and 50% stenosis of the right carotid bulb. Vascular ultrasound assessed in the carotids performed on 07/05 showed calcified plaque within the left carotid bulb suggesting <50%
stenosis, as well as calcified plaque at the right carotid bulb suggesting <50% stenosis. Vascular surgery consulted, and based on the CTA head/neck imaging with what appears to be high-grade stenosis seen at the left carotid bulb + proximal ICA,
he was recommended for vascular intervention. On 07/06, he underwent a left carotid endarterectomy with patch angioplasty using bovine pericardium. There were no immediate complications. He was transferred to the ICU postoperatively, and
Transport Assistant services consulted for additional management/recommendations.
Chronic conditions UNDERWRITING ANALYST: CAD s/p MARU to pLAD (Sep 2011), history of UT, history of TIA, PVD, chronic HFrEF/ICM, history of emphysema/COPD, hypercholesterolemia and history of frequent falls
Impression:
#Symptomatic left carotid artery stenosis s/p left carotid endarterectomy with patch angioplasty using bovine pericardium (POD#1)
#Subacute infarct involving left pisano radiata and superior left basal ganglia (seen on brain MRI from 07/04/2025)
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
#Coffee-ground emesis with concern for UGIB
#Reported history of stomach ulcer 'years ago'
#Acute anemia
#Leukocytosis
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
Plan:
Postoperative surgical intensive care unit monitoring
Supplemental oxygen as needed to maintain SpO2 >90-94%
prn nebulized bronchodilators � not currently bronchospastic
Incentive spirometry encouraged 10x per hour for at least 4 hrs a day
Aspiration precautions - given that he is now s/p L-CEA, I will re-order RESTAURANT SUPERVISOR eval as they have been following him previously especially given concern for cognitive-linguistic impairment
Pain control
Neuro and vascular checks per protocol
Maintain MAP>65
Replete electrolytes with K>4, Mg>2
Maintain euglycemia with goal BG 140-180
Patient is an active smoker of approximately 0.5�1 PPD; he has been smoking for about 64 years. Recommend to use nicotine patch if patient amenable
- No prior donald or PFTs on file
- Not interested at this juncture to stop smoking
- If he becomes SOB, he should see us in the office. Currently denies SOB, chronic cough or chest tightness. No indication currently for maintenance inhalers
Given his coffee-ground emesis today, start PPI 40mg IV BID
GI consulted - no plans for endoscopic intervention at this time. Patient should follow-up with GI as an outpatient to discuss outpatient EGD
Cautiously continue with DAPT with ASA + Plavix
Neurology recs appreciated
PT/OT - PT rec'd acute rehab - patient awaiting placement (OT rec'd acute rehab vs home)
Trend WBC
Observe off ABx
Monitor temperature curve
Vascular surgery following-correspondence and operative notes reviewed
Transfuse blood products as needed to keep Hb>7g/dL, and plt>50k (given post-operative status)
DVT prophylaxis � given his coffee-ground emesis, continue with SCDs for now, especially while on aspirin + Plavix. If Hb remained stable over the next 1-2 days while on DAPT, then start HSQ vs LMWH
Early nutrition
Early mobilization
Patient is stable for downgrade out of ICU to telemetry. No additional recommendations at this time. Transport Assistant/Pulmonary service will now sign off. Thank you for allowing us to be involved in the care of this patient. Please reconsult if there
are any additional questions/concerns, or if patient's respiratory status deteriorates.
Total time spent today was 58 minutes for this encounter. Time includes reviewing laboratory test/imaging results, reviewing pertinent medical records, obtaining and reviewing medical history, performing an appropriate exam, ordering medications,
tests and procedures. Time also includes documentation of this encounter, coordinating patient care and communicating with other healthcare professionals. Total time does not include separately billed tests performed on this date of service.
--- NOTE | 2025-07-07 08:32 | PTCARENOTE ---
Update with vascular team this am. Delined, ivf capped. Start mobility training out of bed to chair. Ambulate to bathroom one assist and supervised, still unsteady. While out of bed eating breakfast and am pills. Noted 150ml coffee ground watery
emesis. Follow up with surgery pending, update resident at bedside. Patient also verbalizes hasn't moved bowels since Saturday. VSS throughout episode. Holding remainder of breakfast. Still presently in chair. States feels better.
--- NOTE | 2025-07-07 09:34 | PTCARENOTE ---
Updated assessment, vital signs ongoing and as documented. Continue with POD#1 mobility training. In and out of bed to chair to bathroom. Nausea and gas as noted. No more emesis at this time. holding breakfast till updated by MD. Update with family
via phone. expressing plan of cares as far as patient going to rehab facility to work on strength and mobility. Await PT/OT follow up. Patient very unsteady on feet, favors use of surrounds to transfer and move. Continue follow up plan of
cares. Presently resting in bed. Call soriano in reach and in use.
--- NOTE | 2025-07-07 10:12 | PTOTSP ---
WEB DEVELOPMENT INSTRUCTOR Note
New orders required to continue WEB DEVELOPMENT INSTRUCTOR services after general anesthesia for L CEA. Please place orders as able/appropriate.
As of last evaluation 07/05/2025 - WEB DEVELOPMENT INSTRUCTOR services warranted at next level of care.
[2025-07-07] MEDS: MIRALAX 17 GRAMS PO (10:29)
[2025-07-07] MEDS: SENOKOT-S 1 TABLET PO ×2 (10:29→20:23)
--- NOTE | 2025-07-07 11:00 | PTCARENOTE ---
Update with hospitalist team at bedside. Continue neurological assessment trend follow up. Medications as ordered. Update with pharmacy and continue follow up plan of cares. VS ongoing with continued rounds. Chest and abdominal xrays completed.
--- NOTE | 2025-07-07 11:38 | PTCARENOTE ---
Patient resting at this time. Update at bedside with cloth bale header team, follow up with pharmacy, continue ongoing vital sign and assessment trends. Ice intermittent to left cea site, site remains soft, intact, no drainage and pain free. Patient
passing some gas as noted.
--- NOTE | 2025-07-07 13:56 | CON.GI ---
Addendum entered and electronically signed by Sabrina Iraheta DO 07/07/25 15:15:
The patient was seen and examined by me independently in collaboration with the nurse practitioner.
Past medical history/social history/medications/allergies/family history reviewed.
Lab data and imaging data reviewed.
Facundo Trevino is a 79 y.o. male w/ pmhx HLD, HTN, CAD s/p PCI on ASA, hx CVA, tobacco abuse admitted with reports of ambulatory dysfunction and frequent falls with workup revealing subacute infarct of the left pisano radiatia and superior left
basal ganglia as well as carotid stenosis. He underwent L. carotid endarterectomy on 07/06/25. GI is consulted for coffee-ground emesis. No prior EGD or Colonoscopy. He is now on ASA and Plavix. Admits to NSAID use. Also, reports constipation.
Hgb 13.5 --> 11.5 --> 11.7
BUN 18 --> 16
Suspect localized irritation such as erosive gastritis/esophagitis vs. ulcer vs. AVM vs. MWT vs. ischemic vs. stress vs. other in setting of subacute CVA and L. CEA 07/06.
Given stable hemoglobin and now on DAPT, no plans for endoscopic intervention at this time. Recommend PPI BID and d/c on PPI BIDx8 weeks then once daily
Should follow-up with GI as outpatient to discuss outpatient EGD, ideally when able to come off of plavix, as well as for colonoscopy, as he has never had one.
Bowel regimen--give dose of mag citrate, then continue miralax and 2 senokot daily
NSAID avoidance
GI will sign off, please call with questions.
Original Note:
Consultation
-
Date/Time Consultation Requested: 07/07/25 1015
Date/Time Consultation Performed: 07/07/25 1400
Requesting Provider: Sabine Quispe MD
Performing Provider: WHITNEY Fish, Lor Iraheta DO
Reason for Consultation: coffee ground emesis
Medical History
Chief Complaint / HPI
Chief Complaint: vomting blood
History of Present Illness:
Pt is a 79yo with hx COPD, CAD with prior stenting, ischemic CM, TIA, hypercholesterolemia, WI, PUD years ago, frequent fall with coccyx pain with admission 07/03 with concern for CVA with 1.8 cm subacute infarct and other small infarcts. Pt went
07/06 for Left CEA with start of new Plavix and now noted with coffee ground emesis this am. On admission hbg 13.3 with drop to 11.7 today. Pt recall EGD years ago with PUD. No prior colonoscopy. + NSAID use in May taking 3 times per day
after fall for several day. Pt also wit ASA 81mg on med rec sheet. Pt did have visit with GI in 2022 but declined to proceed with visit and left office.
In review with patient and family -- he admits to occasional GERD without medications and gradual wt loss over time. He had had hiccups last few days and admits to new constipation with no stools for several days. He denies issues with
odynophagia, dysphagia, diarrhea, blood or black in stools. Pt also admits to new shortness of breath last few weeks.
Past Medical History
Past Medical History: COPD (emphysema), CVA (TIA), Hypercholesterolemia, WI and Other (PUD, PVD, angina, ischemic CM)
Past Surgical History: Cardiac (prior stenting ) and Other (hernia repair)
Social History
Tobacco: Smoker ( 1 PPD)
Alcohol: Former (heavy in s )
Drug: None
Personal:
Living: With Family
Employment: Retired
Family History
Family History: Other (no family hx GI malignancies )
Allergies / Home Medications
Allergy/AdvReac Type Severity Reaction Status Date / Time
No Known Allergies Allergy Verified 07/01/25 15:23
�Medication �Instructions �Recorded
atorvastatin 80 mg tablet 80 mg PO DAILY cholesterol 03/06/21
lisinopril 2.5 mg tablet 2.5 mg PO DAILY Blood Pressure 03/06/21
aspirin 81 mg tablet 81 mg PO DAILY Blood Clot 07/03/25
Prevention/Tx
Review of Systems
-
History Source: Patient and Family
Constitutional: Reports Weight Loss (over time ) and Other (hiccups )
EENT: Reports No Symptoms
Respiratory: Reports Trouble Breathing
Abdomen/GI: Reports Nausea, Vomiting (coffee ground emesis ) and Constipated
: Reports No Symptoms
Musculoskeletal: Reports Other (recent falls )
Neurological: Reports Dizzy and Weakness
Endocrine: Reports No Symptoms
Hematologic/Lymphatic: Reports Bleeding
Vital Signs
Temp Pulse Resp BP Pulse Ox
97.9 F 70 17 107/47 95
07/07/25 12:46 07/07/25 13:30 07/07/25 13:30 07/07/25 12:46 07/07/25 12:46
Physical Exam
Exam
General: Well Developed, Well Nourished, No Apparent Distress and Other (hiccups during evaluation )
HEENT: Normocephalic and Anicteric
Respiratory: Clear
Cardiac: Regular Rhythm
GI: Soft, Non Tender and Non Distended
Musculoskeletal: No Clubbing and No Cyanosis
Skin: Warm and Dry
Neuro: Awake, Alert and AO x 3
Psych: Calm
Results
WBC 14.0 10^3/uL (4.8-10.8) H 07/07/25 03:52
Hgb 11.5 g/dL (13.0-18.0) L 07/07/25 03:52
Hct 36.2 % (39.0-52.0) L 07/07/25 03:52
MCV 93.8 fL (80.0-94.0) 07/07/25 03:52
Plt Count 268 10^3/uL (130-400) 07/07/25 03:52
Absolute Neuts (auto) 5.5 10^3/uL (1.4-6.5) 07/05/25 06:30
PT 14.0 Sec (11.4-14.6) 07/07/25 03:52
INR 1.04 07/07/25 03:52
APTT 28.5 Sec (23.4-35.0) 07/07/25 03:52
Sodium 136 mmol/L (135-145) 07/07/25 03:52
Potassium 4.2 mmol/L (3.5-5.1) 07/07/25 03:52
Chloride 106 mmol/L (98-107) 07/07/25 03:52
Carbon Dioxide 29 mmol/L (22-30) 07/07/25 03:52
BUN 16 mg/dl (9-20) 07/07/25 03:52
Creatinine 0.6 mg/dL (0.7-1.3) L 07/07/25 03:52
Calcium 8.2 mg/dl (8.4-10.2) L 07/07/25 03:52
Total Bilirubin Cancelled 07/05/25 07:58
AST Cancelled 07/05/25 07:58
ALT Cancelled 07/05/25 07:58
Alkaline Phosphatase Cancelled 07/05/25 07:58
Hepatitis C Antibody Negative (Negative) 07/04/25 06:44
Diagnostic Image Results:
12/27/2022 CT a/p with and without
1). Colitis with bowel wall thickening in the sigmoid and distal descending colon and mild pericolonic inflammatory stranding in the mid and distal descending colon
2). Stable mildly enlarged portacaval lymph node
3). Multiple bilateral nonobstructing renal calculi including renal vascular calcification
4). Atherosclerosis.
5). Stable granulomatous disease.
12/21/2022 CT A/p without
Abdomen: There are multiple calcifications within the spleen and liver, consistent with prior granulomatous disease. No other focal lesion identified. Gallbladder unremarkable. Prominent GE junction consistent with a small hiatal hernia.
1. Bilateral small calcified granulomas in the lungs. Calcified granulomas in the liver and spleen consistent with prior granulomatous disease. This was noted on prior chest CT.
2. Vascular calcifications in the kidneys bilaterally. There are a few nonobstructing intrarenal calcifications in the kidneys, no hydronephrosis or hydroureter. No distal ureteral calcifications. No bladder calcifications.
3. Atherosclerotic vascular disease. Dense calcification of the aorta. No aneurysm.
4. Nonspecific mildly prominent portacaval lymph node measuring 1.2 x 2.5 cm. Mildly prominent lymph node in the gastrohepatic ligament measures 1.9 cm in length, 9 mm in short axis dimension. These findings are not specific. Differential includes
reactive change, inflammation or infection, less likely neoplasm. No other significant adenopathy.
5. No bowel obstruction. Diverticulosis. No CT evidence for diverticulitis. Appendix normal.
6. No free air, free fluid or fluid collection.
07/07/25 ABD x ray
Nonobstructive bowel gas pattern. Moderate colonic stool burden. No appreciable intraperitoneal free air.
Chronic degenerative changes of the spine.
Prior GI Procedures:
EGD: ? years ago with PUD
Colonoscopy: none
Assessment / Plan
-
Pt is a 79yo with hx COPD, CAD with prior stenting, ischemic CM, TIA, hypercholesterolemia, WI, PUD years ago, frequent fall with coccyx pain with admission 07/03 with concern for CVA with 1.8 cm subacute infarct and other small infarcts. Pt went
07/06 for Left CEA with start of new Plavix and now noted with coffee ground emesis this am. On admission hbg 13.3 with drop to 11.7 today. Pt recall EGD years ago with PUD. No prior colonoscopy. + NSAID use in May taking 3 times per day
after fall for several day. Pt also wit ASA 81mg on med rec sheet. In review with patient and family -- he admits to occasional GERD without medications and gradual wt loss over time. He had had hiccups last few days and admits to new
constipation with no stools for several days. He denies issues with odynophagia, dysphagia, diarrhea, blood or black in stools. Pt also admits to new shortness of breath last few weeks.
-coffee ground emesis
-anemia with drop in hbg since admission
-CVA on admission with frequent fall with NSAID use
-07/06 s/p CEA with start of Plavix
-constipation
-leukocytosis
- small HH per 2022 imaging
-hx CT 2022 mildly prominent portacaval lymph and gastrohepatic ligament on CT
-distant hx PUD
-hx colitis 2022 -- pt declined to continue GI office visit at that time to discuss work up
other med problems:
-COPD
-tobacco abuse
- CAD with prior stenting
- ischemic CM
-TIA
- hypercholesterolemia
- WI
PLAN:
etiology of coffee ground related to PUD with recent NSAID use, ectasia, mass with noted prominent LN on Ct in 2022, constipation related vs other
pt current taking liquids for lunch and noted hiccups
Pt is new to Plavix first dose 07/06
monitor for recurrent vomiting
would continue clears til am to monitor tolerance
currently on Miralax and senna-- to get mag citrate -- reviewed with nursing to go slow to make sure tolerating lunch prior to adding slow mag citrate
trend hbg
if drop in hbg or sign of continued bleeding t/c EGD though pt current need for Plavix
cont PPI BID
NSAID avoidance - ok for ASA if needed with recent CVA
discussed with family close follow of hbg --per family plan for repeat after admission
t/c eventual EGD/colon if patient agreeable when safe to hold plavix- GI follow up added to discharge
updated family at bedside
-
-
Thank you for consultation and allowing me to participate in the patient's care. Please call the environmental studies department chair GI physician during the after hours with any questions or concerns.
[2025-07-07 14:33] LABS: Hematocrit 37.4 % (39.0-52.0); Hemoglobin 11.7 g/dL (13.0-18.0); Mean Corp Hgb Conc. 31.3 g/dL (33.0-37.0); Mean Corpuscular Volume 94.9 fL (80.0-94.0); Platelet Count 260 10^3/uL (130-400); Red Cell Dist. Width 15.3 % (11.5-14.5)
--- NOTE | 2025-07-07 14:45 | CM ---
[facility] accepted patient but will not have a bed until middle of next week. Discussed with patient and . Additional preferences in order are: [facility] in [place] and [facility] in [place].
Referrals forwarded. Awaiting responses. Attending aware.
--- NOTE | 2025-07-07 15:17 | PTCARENOTE ---
Updates with GI consult at bedside. Update with vascular team, hospitalist team and marine driller team. Follow up labs as ordered. Continue follow up trends. GI recommendations for mag citrate (patient to take quater of bottle slowly over next hour
and repeat slowly as necessary) to prevent emesis or nausea. Continue clears but slowly. Follow up results and trends. Lens Mounter update with family at bedside. Patient now in telemetry status. Assessment unchanged thru shift. In and out of bed to
bathroom one person assist. project manager industrial at bedside. Continue to follow and update.
[2025-07-07] MEDS: CITROMA 300 ML PO (15:34)
--- NOTE | 2025-07-07 15:51 | PTCARENOTE ---
Pt/OT at bedside with patient. Follow up evaluation. Review events of day and plan of cares. Continue follow up plan of therapy.
--- NOTE | 2025-07-07 18:03 | PTCARENOTE ---
Patient with half bottle Mag/Citrate consumed. Still with noted hiccups, bloating and some increased oral and rectal flatus. In and out of bed. Continues to deny pain discomfort. Cea site remains intact. Tolerates sips of clears. Continue with
teaching. Family home at this time. Call soriano in reach and in use. Verbalizes satisfaction of cares at this assessment.
[2025-07-07] MEDS: NSS (PRESERVATIVE FREE) 10 ML IV (20:23)
[2025-07-07] MEDS: PROTONIX IV 40 MG IV (20:23)
[2025-07-07] MEDS: REMOVE LIDOCAINE PATCH 1 PATCH REMOVE (20:24)
--- NOTE | 2025-07-07 21:56 | PTCARENOTE ---
Received patient at start of shift, aao x3, [place] b/l, affect pleasant. Patient using call soriano appropriately and requesting to use bathroom. RN provided standby assist to bathroom, gait unsteady. NIH 0. NSR on the monitor with occasional PVCs. Lungs
coarse, diminished throughout. Pox 95% on ra. BS active x4, abdomen round, nontender, patient noted to be belching and passing flatus earlier this shift. Denies pain.
Left CEA site with surgical glue, is c/d/i and manager creative services. Area surrounding site is soft, puffy, no redness noted. Patient has left ac int and right hand int, both patent. Call soriano within reach, will continue to monitor patient closely.
[2025-07-08] VITALS (10 sets, daily range): BP systolic 91–128; BP diastolic 46–91; BMI 24.4
--- NOTE | 2025-07-08 02:52 | PTCARENOTE ---
Patient o2 sat noted to be 91% on ra, asymptomatic. O2 2L via n/c applied, o2 sats increased to 95-98%. Patient resting with observed comfort throughout shift.
[2025-07-08 05:28] LABS: Hematocrit 35.8 % (39.0-52.0); Hemoglobin 11.2 g/dL (13.0-18.0); Mean Corp Hgb Conc. 31.3 g/dL (33.0-37.0); Mean Corpuscular Volume 95.0 fL (80.0-94.0); Platelet Count 226 10^3/uL (130-400); Red Cell Dist. Width 15.3 % (11.5-14.5)
[2025-07-08 05:39] LABS: Blood Urea Nitrogen 13 mg/dl (9-20); Calcium 8.3 mg/dl (8.4-10.2); Carbon Dioxide 32 mmol/L (22-30); Chloride 107 mmol/L (98-107); Estimated Creatinine Clearance 69 ml/min; Glucose 94 mg/dl (70-99); Magnesium 2.3 mg/dl (1.6-2.3); Potassium 4.7 mmol/L (3.5-5.1); Sodium 140 mmol/L (135-145); eGFR > 60.00
--- NOTE | 2025-07-08 07:40 | W.PN.VS ---
Addendum entered and electronically signed by Lj Levy MD 07/08/25 09:16:
Seen and examined with PLANT MECHANIC. Agree with findings and plan as discussed and noted below.
Original Note:
Today's Communication / Plan
-
Patient seen and examined at bedside with Dr. Lj Levy M.D., below plan reviewed with attending.
Assessment/Plan
-
Postop day 2 left CEA
Plan:
Appreciate recommendations from GI regarding episode of coffee-ground emesis yesterday, defer to primary team for advancing and diet, hemoglobin remained stable
Follow-up placed in discharge instructions
From a vascular surgical perspective cleared for discharge
We will sign off please call with questions or concerns
Subjective Data
-
Date of Service: July 08, 2025
Patient seen examined at bedside, offers no complaints. Reports near resolution of nausea and emesis overnight. Currently denies nausea, headache, fever, and chills. Endorses eagerness for discharge to home.
Objective Data
-
Vital Signs
Temp Pulse Resp BP Pulse Ox
98.9 F 61 14 112/47 95
07/08/25 03:06 07/08/25 06:00 07/08/25 06:00 07/08/25 06:00 07/08/25 02:52
Intake and Output
07/07/25 07/08/25 07/09/25
06:59 06:59 06:59
Intake Total 200 / 200 570 / 570
Balance 200 / 200 570 / 570
Intake:
Oral fluids 570 / 570
IV fluids (Total) 200 / 200
NSS 200 / 200
Other:
How many times incontinent 1
MODERATE amount urine
Number of approximated SMALL 1
amounts of urine
Number of approximated MODERATE 1
amounts of urine
Number of approximated LARGE 1
amounts of urine
Lab Results
07/08/25 05:01
07/08/25 05:01
Calcium 8.3 mg/dl (8.4-10.2) L 07/08/25 05:01
Phosphorus 4.0 mg/dl (2.5-4.5) 07/07/25 03:52
Magnesium 2.3 mg/dl (1.6-2.3) 07/08/25 05:01
Total Bilirubin Cancelled 07/05/25 07:58
AST Cancelled 07/05/25 07:58
ALT Cancelled 07/05/25 07:58
Alkaline Phosphatase Cancelled 07/05/25 07:58
Total Protein Cancelled 07/05/25 07:58
Albumin Cancelled 07/05/25 07:58
Physical Exam
-
AAO x 3
No tachypnea on room air
No tachycardia
Abdomen soft
Neck site clean, dry, intact, soft, mild ecchymosis
Moves all extremities
Tongue midline
[2025-07-08] MEDS: ZESTRIL PO (07:51)
[2025-07-08] MEDS: MIRALAX 17 GRAMS PO (07:51)
[2025-07-08] MEDS: CYANOCOBALAMIN 1000 MCG IM (07:52)
[2025-07-08] MEDS: PROTONIX IV 40 MG IV (07:52)
[2025-07-08] MEDS: LIPITOR 80 MG PO (07:52)
[2025-07-08] MEDS: SENOKOT-S 1 TABLET PO (07:52)
[2025-07-08] MEDS: ASPIR LOW (ENTERIC COATED) 81 MG PO (07:52)
[2025-07-08] MEDS: PLAVIX 75 MG PO (07:52)
[2025-07-08] MEDS: NSS (PRESERVATIVE FREE) 10 ML IV (07:52)
[2025-07-08] MEDS: LIDOCAINE 4% PATCH TOPICAL (07:53)
--- NOTE | 2025-07-08 08:31 | PTCARENOTE ---
recd 0715 handoff with previous shift at bedside. Assessment as documented. Wishes to eat breakfast in bed (ordered, diet advanced to low residue), NIHSS completed, intact, no deficit. Call soriano bedside and in use, questions answered. Awaiting
plans for the day.
[2025-07-08] MEDS: ZESTRIL 2.5 MG PO (08:59)
--- NOTE | 2025-07-08 13:16 | PTCARENOTE ---
in and out of bed, awaiting cofirmed plans for rehab today. family bedside.
--- NOTE | 2025-07-08 13:39 | CM ---
Addendum entered by Cali Pearl 07/08/25 14:23:
Transport scheduled for 18:00. Notification to all parties.
Original Note:
Patient has been medically cleared for discharge to [facility] in [place]. Ambulance transport to be scheduled. Patient, aware.
Nurse to Nurse report #: [phone]
--- NOTE | 2025-07-08 14:01 | W.PN.HOSP.TC ---
Today's Communication/Plan
-
Discharge to rehab
Assessment / Plan
Assessment / Plan
79-year-old male with falls. He had an injury while lifting something heavy on June 11 and fell backwards on his bottom. He developed pain in the coccyx since then. He was seen in the ER 2 days ago with dizziness and falls states that his
legs give out. Also had some worsening shortness of breath during the ER visit head CT showed a left basal ganglia/periventricular infarct. Patient was advised to get admitted for an MRI but he wanted to go home. Aspirin was started.
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
CT PE Study-No evidence of pulmonary embolism.No significant acute abnormality identified in the chest, as described above.
MRI of the brain -1.8 cm subacute infarct of the left pisano radiata and superior left basal ganglia.Other small chronic infarcts of the left pisano radiata and left basal ganglia. Chronic lacunar infarcts of the right caudate head and right
thalamus.
CTA head and neck-subacute on chronic infarct in the left pisano radiata and left basal ganglia. No high-grade stenosis or occlusion of the [place]. 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 Bilateral carotid
bifurcation atherosclerosis causing 80% stenosis of the left carotid bulb and 50% stenosis of the right carotid bulb. Moderate stenosis at the origin of the right vertebral artery.
Vascular ultrasound-calcific plaque in the left carotid bulb suggestive of less than 50% stenosis. Calcific right carotid bulb plaque less than 50% stenosis
Echo-EF 62%. No changes since 2014. Thickened aortic valve with adequate leaflet excursion. Mild concentric LVH. Mild MR
Lumbar spine MRI-no acute fracture. 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
Cardiovascular system S1-S2 appreciated, short systolic murmur at apex
Chest clear to auscultation
Abdomen soft and nontender
Neuro exam-grossly nonfocal
Carotid left side with surgical wound
# Frequent falls
Orthostatic vital signs negative
CT PE study unremarkable
MRI of the brain with CVA likely reason-subacute infarct of the left pisano radiata and superior left basal ganglia
Carotid stenosis noted
Continue aspirin, Plavix, statin
PT OT
Status post carotid endarterectomy on the left side on 07/06/2025
# Coffee-ground emesis
Possibly secondary to constipation but since patient is on dual antiplatelets we will get opinion from GI prior to discharge
Continue PPI BID for 8 weeks then PPI daily
OP EGD and colonoscopy
# Constipation-treat. Enema if no success prior to discharge
# Coccygeal pain with recent fall- MRI noted
# Dyspnea on exertion-CT PE study negative. Echo without any acute changes. Possible deconditioning. No real reasons. Patient is not hypoxic
# Hypertension- Lisinopril.
# Hyperlipidemia- Continue Statin
# CAD status post stents- Now on aspirin, Statin
# Active smoker- Smokes 1 pack/day-smoking cessation counseling
# DVT prophylaxis�Lovenox
# Full CODE
Discussed with vascular. After 21 days Plavix is not needed for vascular reasons. It is only for stroke. Patient can continue with aspirin and statin alone after that.
Discussed with RN
Discussed with case management
Patient has a bed at [facility]
aware and at bedside
More than 30 minutes spent in discharge including
Final examination of the patient
Summarizing hospital stay
Instructions for continuing care to all relevant caregivers
Preparation of discharge records, prescriptions, and referral forms
Part of this note was created using voice recognition system. Occasional wrong word or��sound alike� substitutions may have inadvertently occurred due to the inherent limitations of voice recognition software. If noted kindly bring it to my
attention for correction.
Anticipated Discharge: Today
Subjective/Interval History
-
Date of Service: July 08, 2025
Objective Data
-
Labs:
Laboratory Results
07/08/25
05:01
WBC 12.3 H
Hgb 11.2 L
Hct 35.8 L
Plt Count 226
Sodium 140
Potassium 4.7
Chloride 107
Carbon Dioxide 32 H
BUN 13
Creatinine 0.7
Glucose 94
Calcium 8.3 L
Vital Signs:
Vital Signs
Temp Pulse Resp BP Pulse Ox
98.4 F 77 19 116/69 94
07/08/25 11:40 07/08/25 13:15 07/08/25 13:15 07/08/25 11:04 07/08/25 11:06
I&O
07/07/25 07/08/25 07/09/25
06:59 06:59 06:59
Intake Total 200 / 200 570 / 570
Balance 200 / 200 570 / 570
[2025-07-08] MEDS: DULCOLAX 10 MG RECTAL (14:05)
--- NOTE | 2025-07-08 14:11 | W.DS.TRANS ---
DC Summary - Granulator
-
Discharge Instructions:
Discharge Diagnosis/Procedures Frequent falls
Multilevel degenerative changes of the lumbar
spine as detailed, worst at L3-4 where disc and
facet disease contribute to severe spinal canal
and moderate bilateral neural foraminal stenosis
Left basal ganglia/periventricular infarct
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
communicating artery.
Coccyx pain
Coffee-ground emesis
Constipation
Essential hypertension
Hyperlipidemia
Coronary artery disease s/p stents
Diet As tolerated
Activity No strenuous activity
Driving Restrictions Not until seen by your Dr
Bathing Restrictions OK to Shower
Blood Work Follow up with PCP within 1 week for CBC, CMP
Others Tests Endoscopy and colonoscopy as outpatient. Follow
-up with GI doctor to schedule
Other Services PT,OT
Instructions:
Stand-Alone Forms: Vascular Surg Discharge Instr
Changes to Home Medications: Yes
Discharge Medications:
DC Medications w/original date entered in [employer]
atorvastatin 80 mg tablet 80 mg PO DAILY cholesterol 03/06/21
lisinopril 2.5 mg tablet 2.5 mg PO DAILY Blood Pressure 03/06/21
aspirin 81 mg tablet 81 mg PO DAILY Blood Clot Prevention/Tx 07/03/25
acetaminophen 325 mg tablet 650 mg (2 x 325 mg) PO Q4HPRN PRN mild pain/GARSIA/temp> 100.4F #30 tabs 07/08/25
clopidogrel 75 mg tablet 75 mg PO DAILY Blood clot prevention/tx #30 tabs 07/08/25
cyanocobalamin (vitamin B-12) 1,000 mcg capsule 1,000 mcg PO DAILY low normal B12 #30 caps 07/08/25
lidocaine 4 % topical patch 1 patch topical DAILY Pain #10 ea 07/08/25
pantoprazole 40 mg tablet,delayed release 40 mg PO BID #60 tabs 07/08/25
polyethylene glycol 3350 17 gram oral powder packet 17 g PO DAILY Constipation #30 ea 07/08/25
sennosides 8.6 mg-docusate sodium 50 mg tablet (Senna Plus) 2 tab PO BID Constipation #60 tabs 07/08/25
Home Medication Changes
Plavix, Protonix, Senokot, MiraLAX, B12 are new
Pending Results: No
--- NOTE | 2025-07-08 14:47 | PTCARENOTE ---
fruit picker machine operator scheduled for 1800, pt and family aware, belongings remain in room, packed. aware of plans for the day.
--- NOTE | 2025-07-08 14:48 | PTCARENOTE ---
BM as noted, mod/large formed brown after dulcolax.
--- NOTE | 2025-07-08 16:15 | W.DCSUMMARY ---
Discharge Summary
Discharge Data
Date of Admission: 07/04/25
Date of Discharge: 07/08/25
-
Pending Results: No
Hospital Course
Discharging Physician : Dr. Elton Dugan
Disposition : Acute rehab facility
Primary care physician : Dr. Mg James
Principal Discharge diagnosis :
Frequent falls
Multilevel degenerative changes of the lumbar spine as detailed, worst at L3-4 where disc and facet disease contribute to severe spinal canal and moderate bilateral neural foraminal stenosis
Left basal ganglia/periventricular infarct
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
Coccyx pain
Coffee-ground emesis
Constipation
Essential hypertension
Hyperlipidemia
Coronary artery disease s/p stents
Hospital Course : A 79 year old male with a past medical history of hypertension, hyperlipidemia, coronary artery disease s/p stents who was sent by his PCP for evaluation of multiple falls and coccyx pain since 06/11/25. CT head in the ED revealed
a left basal ganglia/periventricular infarct. Subsequent MRI brain demonstrated a 1.8 cm subacute infarct of the left pisano radiata and superior left basal ganglia along with chronic infarcts in the bilateral basal ganglia, left pisano radiata,
right caudate head and right thalamus. CTA head and neck showed no acute large vessel occlusion but revealed a 3�4 mm saccular aneurysm of the anterior communicating artery, 80% stenosis of the left carotid bulb, 50% stenosis of the right carotid
bulb and moderate stenosis of the right vertebral artery.
Neurology was consulted and recommended DAPT with aspirin 81 mg + clopidogrel 75 mg daily + atorvastatin 80 mg daily. Vascular surgery was consulted for severe left carotid stenosis and the patient underwent a left carotid endarterectomy on
07/06/[address] Almeida. Postoperatively, the patient remained hemodynamically stable with mild postoperative leukocytosis- likely reactive. Additionally, the patient experienced 1 episode of coffee-ground emesis; he remained stable with no
further bleeding. He was placed on Protonix 40 mg daily. His constipation was managed with Miralax and Senna. Coccyx pain from recent falls was treated conservatively with Tylenol and lidocaine patches. Physical and occupational therapy evaluations
were obtained, and inpatient rehabilitation at [facility] was recommended; a physiatry consult was placed. Echo showed normal left ventricular systolic function and EF 62%, mild concentric LVH, mild mitral regurgitation and no major changes from
prior studies. Patient to be discharged to acute rehab facility 07/08/25.
Important imaging findings :
CT chest 07/01/25: no evidence of PE.
CT head 07/01/25: no acute abnormality
Brain MRI 07/04/25: 1.8 cm subacute infarct of left pisano radiata and superior left basal ganglia. Other small infarcts of left pisano radiata and left basal ganglia. Chronic lunar infarcts of right caudate head and right thalamus.
CTA head/neck: stable known subacute and chronic infarcts in the left pisano radiata and left basal ganglia. Bilateral carotid bifurcation atherosclerosis causes 80% stenosis of left carotid bulb/50% stenosis of right carotid bulb. Moderate stenosis
of right vertebral artery.
MRI L spine: no acute fractures
Vascular US 07/05/25: 1. Calcified plaque within the left carotid bulb, measurements on the current study suggestive of less than 50% stenosis. Velocities are lower than those measured on the prior study. Calcified right carotid bulb plaque,
measurements suggestive of less than 50% stenosis. No significant change compared to prior study. Calcified common carotid arterial plaque on each side.
CXR 07/06/25: 1. SEVERE CALCIFIC ATHEROSCLEROTIC PLAQUE in the thoracic aorta and CORONARY ARTERIES.
2. CHRONIC GRANULOMATOUS DISEASE INFECTION with calcified mediastinal and hilar lymph nodes and many tiny round calcified pulmonary granulomas regionally distributed throughout the lower lungs.
XR abd 07/07/25: Nonobstructive bowel gas pattern. Moderate colonic stool burden. No appreciable intraperitoneal free air.
Discharge Plan
-
Patient Disposition: Acute Rehab Facility
Discharge Diagnosis/Procedures: Frequent falls
Multilevel degenerative changes of the lumbar spine as detailed, worst at L3-4 where disc and facet disease contribute to severe spinal canal and moderate bilateral neural foraminal stenosis
Left basal ganglia/periventricular infarct
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
Coccyx pain
Coffee-ground emesis
Constipation
Essential hypertension
Hyperlipidemia
Coronary artery disease s/p stents
Condition: Good
Diet: As tolerated
Activity: No strenuous activity
Driving Restrictions: Not until seen by your Dr
Bathing Restrictions: OK to Shower
Blood Work: Follow up with PCP within 1 week for CBC, CMP
Others Tests: Endoscopy and colonoscopy as outpatient. Follow-up with GI doctor to schedule
Other Services: PT and OT
Activity Restrictions/Additional Instructions:
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
Stand Alone Forms: Vascular Surg Discharge Instr
Referrals:
Mark Anthony Kimbrough MD [Active, Neurology]
Mg James MD [Family Provider, Radiology]
Xena Ibarra MD [Active, Neurosurgery]
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
Sabrina Iraheta DO [Active, Gastroenterology]
Referral Note: follow up 6-8 weeks to assess need for EGD/colon with bleeding during admission
Jenni Childs CRNP [Specified Professional Personl, Vascular Surgery] - 07/22/25 1:00 pm
Referral Note: Vascular surgery office follow up
Additional Discharge Medication Instructions: Plavix can be discontinued on 07/27/2025 continue aspirin and statin indefinitely. Protonix 40 mg twice a day for 2 months then daily after that
Prescriptions:
New
acetaminophen 325 mg Tablet
650 mg PO Q4HPRN PRN (Reason: mild pain/GARSIA/temp> 100.4F) Qty: 30 0RF
polyethylene glycol 3350 17 gram Powder In Packet
17 g PO DAILY Qty: 30 0RF
sennosides-docusate sodium [Senna Plus] 8.6-50 mg Tablet
2 tab PO BID Qty: 60 0RF
clopidogrel 75 mg Tablet
75 mg PO DAILY Qty: 30 0RF
lidocaine 4 % Adhesive Patch,Medicated
1 patch topical DAILY Qty: 10 0RF
pantoprazole 40 mg tablet,delayed release (DR/EC)
40 mg PO BID Qty: 60 0RF
cyanocobalamin (vitamin B-12) 1,000 mcg capsule
1,000 mcg PO DAILY Qty: 30 0RF
Continued
atorvastatin 80 MG tablet
80 mg PO DAILY
lisinopril 2.5 MG tablet
2.5 mg PO DAILY
aspirin 81 mg Tablet
81 mg PO DAILY
Discharge Orders:
Discharge Patient (As Directed); Ordered 07/08/25
Ordered By: Elton Dugan
Discharge Date and Time
Print Language: CROATIAN
--- NOTE | 2025-07-08 18:47 | PTCARENOTE ---
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 ate dinner. ambulating self around room with RW, gait steady.
--- NOTE | 2025-07-08 19:12 | PTCARENOTE ---
left via ambulance transport. [facility] In[facility] notified they are now on their way. Belongings sent with pt.
== END 2025-07-08 19:02 | DRG 39 ==
LOC: ICU 14:00
PROVIDERS: Nurse Practitioner; Nurse Practitioner Acute Care; Nurse Practitioner Adult Health; Nurse Practitioner Family; Physician Assistant; ADMITTING PHYSICIAN Hospitalist; ATTENDING PHYSICIAN Hospitalist; CONSULT PHYSICIAN Internal Medicine; CONSULT PHYSICIAN Internal Medicine Critical Care Medicine; CONSULT PHYSICIAN Psychiatry & Neurology Neurology; EMERGENCY PHYSICIAN Emergency Medicine; FAMILY PHYSICIAN Radiology Radiation Oncology; OTHER PHYSICIAN Surgery Vascular Surgery
PROC: 03CL0ZZ Extirpation of Matter from Left Internal Carotid Artery, Open Approach (ICD-10-PCS; 2025-07-06)
PROC: 03UN0KZ Supplement Left External Carotid Artery with Nonautologous Tissue Substitute, Open Approach (ICD-10-PCS; 2025-07-06)
PROC: 03CN0ZZ Extirpation of Matter from Left External Carotid Artery, Open Approach (ICD-10-PCS; 2025-07-06)
DX: I63.81 Other cerebral infarction due to occlusion or stenosis of small artery (principal); I63.529 Cerebral infarction due to unspecified occlusion or stenosis of unspecified anterior cerebral artery; M48.061 Spinal stenosis, lumbar region without neurogenic claudication; K59.00 Constipation, unspecified; I25.119 Atherosclerotic heart disease of native coronary artery with unspecified angina pectoris; Z95.5 Presence of coronary angioplasty implant and graft; M53.3 Sacrococcygeal disorders, not elsewhere classified; I65.23 Occlusion and stenosis of bilateral carotid arteries; I65.01 Occlusion and stenosis of right vertebral artery; R29.6 Repeated falls; F17.210 Nicotine dependence, cigarettes, uncomplicated; Z79.82 Long term (current) use of aspirin; Z79.899 Other long term (current) drug therapy; D64.9 Anemia, unspecified; Z87.11 Personal history of peptic ulcer disease; D71.8 Other functional disorders of polymorphonuclear neutrophils; E78.00 Pure hypercholesterolemia, unspecified; I25.2 Old myocardial infarction; J43.9 Emphysema, unspecified; K21.9 Gastro-esophageal reflux disease without esophagitis; M47.816 Spondylosis without myelopathy or radiculopathy, lumbar region; Z86.73 Personal history of transient ischemic attack (TIA), and cerebral infarction without residual deficits; I10 Essential (primary) hypertension
CPT/HCPCS: 35301; 70450; 70496; 70498; 70551; 71045; 71275; 72148; 74018; 80048; 80053; 80061; 81003; 82607; 83735; 83880; 84100; 84443; 84484; 85025; 85027; 85610; 85730; 86803; 88304; 88311; 92507; 92523; 92526; 92610; 93005; 93306; 93880; 97116; 97163; 97166; 97168; 97535; 99284; 99406; Q9967

== ENCOUNTER → 2025-08-13 13:14 | Outpatient (REF) | payer MEDICARE, OTHER, SELFPAY | LOC: DHVS 13:14 | PROVIDERS: ATTENDING PHYSICIAN Registered Nurse; FAMILY PHYSICIAN Family Medicine | DX: I65.22 Occlusion and stenosis of left carotid artery (principal) | CPT/HCPCS: 93880 ==